=== PATIENT | male | born 1935 | race Caucasian/White ===

== ENCOUNTER 2016-11-14 11:52 | Inpatient (IN) ==
[2016-11-14] MEDS ORDERED: LEVOFLOXACIN INJ 750 MG in PREMIX 1 EACH IV STA (12:29)
[2016-11-14] MEDS ORDERED: ALBUTEROL/IPRATROPIUM 3 ML NEB RESP TX STA (12:29)
[2016-11-14] MEDS ORDERED: PANTOPRAZOLE 40 MG VIAL IV STA (12:29)
[2016-11-14] MEDS ORDERED: methylPREDNISolone SOD SUC 125 MG/2 ML VIAL IV STA (12:29)
[2016-11-14] MEDS ORDERED: METOCLOPRAMIDE 10 MG/2 ML VIAL IV STA (12:29)
--- NOTE | 2016-11-14 12:38 | Emergency Department Note ---
Arrival - Arrival Chief Complaint: Non-Specific Stated Complaint: cold and chills ED Nursing Triage Note: C/o chills and "shaking all over"-onset appx 1 hour ago. +cough, which he states is chronic. Denies CP or SOB. Mode of Arrival: Wheelchair Limitations: No Limitations Source: Patient Time Seen by Provider: 11/14/16 12:29 - History of Present Illness HPI Narrative: This 81-year-old white male presents with abrupt onset of shaking chills and low -grade temperature earlier today. This was not associated with any shortness of breath, chest pain, dysuria, urgency, frequency, nausea, vomiting, or sinus symptoms. However, the patient has had increased complaints of reflux type symptoms as well as midepigastric abdominal discomfort since onset of the chills. More significant, the patient has had problems with a recurrent chronic dry cough for the last week, sometimes associated with expiratory wheeze. Patient is followed by Dr. Paris for COPD and sleep apnea. The patient likewise denies any difficulty developing a stream or hematuria, as he does have a history of prostate cancer surgery per Dr. Eddy. The most significant complaint the patient has at the moment is increased thirst with a very dry mouth that he states he has had for the last 24 hours. Otherwise, the patient is in no acute medical distress. Onset (ago): hour(s) (Patient presents 6 hours post onset of symptoms.) Allergies/Adverse Reactions: Allergies Allergy/AdvReac Type Severity Reaction Status Date / Time simvastatin [From Zocor] Allergy Verified 04/07/16 13:44 Home Medications: Home Medications Medication Instructions Recorded Confirmed Type Cyanocobalamin (Vitamin B-12) 1,000 mcg PO DAILY 06/27/15 11/14/16 History [Vitamin B-12] Tiotropium Inhalation [Spiriva 18 mcg INH DAILY inhalation 07/24/15 11/14/16 Rx Handihaler] capsule Magnesium Oxide 420 mg PO DAILY 11/07/15 11/14/16 History Pantoprazole Tab [Protonix Tab] 40 mg PO BID #60 tablet 03/07/16 11/14/16 Rx Budesonide/Formoterol 80-4.5 2 puff INH BID 04/07/16 11/14/16 History [Symbicort 80-4.5] Colestipol [Colestid] 1 gm PO DAILY 04/07/16 11/14/16 History Furosemide Tab [Lasix Tab] 40 mg PO BID 04/07/16 11/14/16 History hydrALAZINE TAB [Apresoline Tab] 25 mg PO BID 04/07/16 11/14/16 History Albuterol/Ipratropium Neb [Duoneb] 3 ml RESP TX BID 11/14/16 11/14/16 History Apixaban [Eliquis] 2.5 mg PO BID 11/14/16 11/14/16 History Carvedilol [Coreg] 6.25 mg PO BID 11/14/16 11/14/16 History Ferrous Sulfate Tab [Feosol 325 mg PO BID 11/14/16 11/14/16 History Original Tab] Lovastatin 80 mg PO BEDTIME 11/14/16 11/14/16 History Spironolactone 50 mg PO DAILY 11/14/16 11/14/16 History Review of System - Review of System 12 point system: reviewed and no additional remarkable complaints except as stated - Review of System Constitutional: Present: as per HPI Head/Ears/Nose/Throat: Present: see HPI Respiratory: Present: as per HPI Cardiovascular: Present: as per HPI Gastrointestinal: Present: as per HPI Genitourinary male: Present: as per HPI Medical,Surgical,& Family Hx - Medical History Cardio: History of: Cardiac Dysrhythmia (AFIB), CHF (diastolic dysfunction), Hypertension Neurology: No history of: Seizures Endocrine: History of: Dyslipidemia No history of: Diabetes Mellitus (IDDM), Diabetes Mellitus (NIDDM) Respiratory: History of: COPD, Obstructive Sleep Apnea (refractory to CPAP and BiPAP and treated with ASV for tx emergent csa), Respiratory Problems (home o2) Genitourinary: History of: Prostate Problems (surgery), Genitourinary Cancer ( prostate CA with surgery [address] Eddy.), Problems (leaking) Gastrointestinal: History of: GERD, Hemorrhoids Hematology: History of: Anemia Other: History of: Cancer - Surgical History Cardiac Surgeries: Sugical HX of: Cardiac Catheterization HEENT Surgeries: Surgical HX of: Eye Surgery (cataracts) Patient denies: Tonsilectomy & Adenoidectomy Abdominal Surgeries: Surgical HX of: Colonoscopy, EGD Patient denies: Abdominal Surgery, Appendectomy, Cholecystectomy Reproductive Surgeries: Surgical HX of;: Prostate Surgery Orthopedic Surgeries: Patient denies;: Orthopedic Surgery - Family History Family History: Reports;: Family Heart Disease (mother) - Social History Smoking Status: Never smoker Frequency of Alcohol Use: None Type of Drug Use: None Exam Physical Examination: GENERAL: Obese elderly white male in no acute distress. HEENT: Normocephalic. No trauma. Moist mucous membranes. EOMI. PERRLA. ENT NML NECK: Supple. No adenopathy. CARDIAC: Irregular. No murmurs. Heart rate 120 CHEST: Occasional expiratory wheeze and rhonchi. No respiratory distress. O2 sat 93% ABDOMEN: Soft. Tender mid epigastrium. Active bowel sounds. EXTREMITIES: No trauma. Normal ROM. No pedal edema. SKIN: No diaphoresis. No rash. NEURO: Alert. Neuro intact. No focal deficits. Vital Signs: Vital Signs Temperature 100.4 F H 11/14/16 11:58 Pulse Rate 115 H 11/14/16 12:51 Respiratory Rate 20 11/14/16 12:51 Blood Pressure 158/80 11/14/16 11:58 O2 Sat by Pulse Oximetry 98 11/14/16 12:51 Course - Reevaluation(s) Reevaluation #1: Advised patient and family with evidence of decompensation of his failure, resting tachycardia, and temperature, he would need admission for further evaluation and treatment. - Consultations Consultation #1: Discussed with hospitalist service who will admit for further evaluation treatment. Results - Labs CBC & BMP: 11/14/16 12:14 11/14/16 12:14 - Impressions EKG: Atrial fibrillation at 120 with left axis deviation and incomplete right bundle branch block. Nonspecific ST changes with no acute injury pattern noted. - Diagnostic Findings Procedure: Abdominal x-ray: image reviewed by me, report reviewed by me (No acute disease), Chest x-ray: image reviewed by me, report reviewed by me ( Cardiomegaly with pulmonary venous hypertension and incipient CHF) Disposition Clinical Impression: Congestive heart failure, Atrial fibrillation, Fever, History of prostate cancer Case discussed with: patient, patient's family Disposition: Still a Patient Condition: Guarded Time of Disposition: 13:38
[2016-11-14] MEDS ORDERED: LEVOFLOXACIN INJ 150 ML IV ONE (12:42)
[2016-11-14] MEDS ORDERED: PANTOPRAZOLE 40 MG VIAL IV ONE (12:42)
[2016-11-14] MEDS ORDERED: METOCLOPRAMIDE 10 MG/2 ML VIAL ONE (12:43)
[2016-11-14] MEDS ORDERED: methylPREDNISolone SOD SUC 125 MG/2 ML VIAL ONE (12:43)
[2016-11-14 12:44] LABS: Basophils % 0.3 % (0.0-0.8); Eosinophils # 0.1 10*3/uL (0.0-0.87); Eosinophils % 0.6 % (0.00-10.9); Hematocrit 43.4 VOL% (42.0-52.0); Hemoglobin 14.1 GM/DL (14.0-18.0); Immature Granulocytes % 1.2 %; Immature Granulocytes Absolute 0.13 #; Lymphocytes # 0.4 10*3/uL (1.4-4.0); Lymphocytes % 3.5 % (21.2-54.2); Mean Corpuscular HGB Conc 32.5 GM/DL (32-36); Mean Corpuscular Hemoglobin 29 PG (27-34); Mean Corpuscular Volume 88.2 FL (87-102); Mean Platelet Volume 10.2 FL (9.6-12.0); Monocytes # 0.1 10*3/uL (0.11-0.8); Monocytes % 1.1 % (1.7-12.7); Neutrophils % 93.3 % (38.7-73.9); Platelet Count 230 T/CUMM (130-400); Red Blood Count 4.92 MC/CUMM (3.8-5.5); Red Cell Distribution Width 18.9 % (9.3-17.3); White Blood Count 10.7 T/CUMM (4-12)
--- NOTE | 2016-11-14 12:47 | EKG Report ---
Stationary ECG Study [facility] ER Test Date: 11/14/2016 12:45:02 PM Pat Name: TIMOTHY CARRENO Department: Room: 290 Gender: M Property Investor: : [id number] Requested by: Deejay Chavez Order Number: [id number] Reading MD: TARAN BORJAS Intervals [place] Rate: 121 P: 999 [place]: 0 QRS: -32 QRSD: 103 T: 59 QT: 307 QTc: 379 Interpretive Statements ATRIAL FIBRILLATION WITH RAPID VENTRICULAR RESPONSE MARKED LEFT AXIS DEVIATION INCOMPLETE RIGHT BUNDLE BRANCH BLOCK Electronically Signed On 11-16-16 16:38:49 CDT by TARAN BORJAS [email or web address]
[2016-11-14 12:50] LABS: INR 1.1; PT Patient Result 11.4 SECS
[2016-11-14] MEDS ORDERED: METOPROLOL TARTRATE 5 MG/5 ML VIAL IV STA (12:59)
[2016-11-14 13:01] LABS: Alanine Aminotransferase 12 U/L (16-61); Albumin 3.2 G/DL (3.4-5.0); Alkaline Phosphatase 67 U/L (45-117); Amylase 64 U/L (25-115); Aspartate Amino Transferase 19 U/L (0-37); Blood Urea Nitrogen 22 MG/DL (7-18); Calcium 8.9 MG/DL (8.5-10.1); Glucose 176 MG/DL (74-106); Osmolality,Calculated 279.8 MOS/KG (273-304); Potassium 3.9 MMOL/L (3.5-5.1); Sodium 137 MMOL/L (136-145); Total Protein 6.9 G/DL (6.4-8.3); Troponin I Only < 0.015 NG/ML (0.00-0.045)
[2016-11-14 13:05] LABS: Band Neutrophils 18 % (0-10); Hypochromasia Slight; Lymphocytes 1 % (20-55); Platelet Estimate Adequate; Polychromasia Slight; Prostate Specific Antigen Diag < 0.1 NG/ML (0-4); Segmented Neutrophils 77 % (50-85); Total Cells Counted 100
--- NOTE | 2016-11-14 13:26 | XRay Report ---
XR chest 2V Indication: Shortness of breath, fever Comparison: 04 March 2016 Findings: The heart and mediastinum are stable in size and configuration. The pulmonary vascularity is slightly increased with bilateral increased interstitial lung density. No other lung infiltrates, effusions, pneumothorax or other abnormality is demonstrated. Impression: Findings suggest mild cardiac decompensation. PROCEDURE INTERPRETED AT [facility] DEPARTMENT OF RADIOLOGY Final Report Signed by: Dr. Graham Chavarria
--- NOTE | 2016-11-14 13:27 | XRay Report ---
XR abdomen 2V Indication: Abdominal pain Comparison: 27 June 2015 Findings: No free fluid or free air seen. The bowel gas pattern appears within normal limits. No abnormal calcifications are present. Multiple clips are present from previous surgery. No other abnormality is identified. Impression: No evidence of acute process demonstrated. PROCEDURE INTERPRETED AT [facility] DEPARTMENT OF RADIOLOGY Final Report Signed by: Dr. Graham Chavarria
[2016-11-14 13:44] LABS: B-Type Natriuretic Peptide 165 PG/ML (2-100)
[2016-11-14] MEDS ORDERED: METOPROLOL TARTRATE 5 MG/5 ML VIAL IV ONE (14:27)
--- NOTE | 2016-11-14 14:28 | Hospitalist History & Physical ---
Assessment and Plan - Time spent with patient Time spent with patient: Greater than 30 minutes (1) COPD with acute exacerbation Status: Acute Assessment and plan: Admit for further evaluation. Breathing treatments. Repeat CBC, BMP Mg in am. ABGs Current Visit: No (2) Chronic diastolic (congestive) heart failure Status: Acute Assessment and plan: BNP is 165 today. Patient is followed by Dr. Aleman. He will be admitted for observation and treatment. Continue to monitor Current Visit: No (3) Atrial fibrillation, chronic Status: Chronic Assessment and plan: A. fib with RVR. Patient is tachycardic on admission. He was given a beta- luz in the ED. Consider Cardizem drip and consultation from cardiology. Current Visit: No (4) Obstructive sleep apnea Status: Chronic Assessment and plan: Patient uses CPAP. Followed by Dr. Chilel Current Visit: No (5) Physical deconditioning Status: Chronic Current Visit: No History of Present Illness Chief complaint: SOB, CHF exacerbation History of present illness: Mr. Duke is a 81 year old male with a past medical history of COPD, congestive heart failure, hypertension, atrial fibrillation with RVR presents to the ER with chills, fever and shortness of breath. The patient and his who is at bedside states that he began having chills and around 11:00 this morning. He also notes a recurrent cough x 1 week. He denies any associated headache, dizziness, chest pain or pain with inspiration. He does complain of some midepigastric pain that, on exam, is tender to palpation. Patient notes that has sleep apnea and uses and full-face CPAP machine nightly, and he does feel slightly better with O2 per NC. He is known to Dr. Xochitl Aleman and Dr. Reilly Choi. CXR on admission shows cardiac decompensation. Lab work is significant for WBC 10.7, BUN 22, Cr 1.7, Glucose 176, bilirubin 1.10, BNP 165. After discussion with Dr. León and Dr. Flores, it was decided that the patient would be admitted to the hospital medicine service for further evaluation and treatment. He is a full code. Home Medications Medication Instructions Recorded Confirmed Type Cyanocobalamin (Vitamin B-12) 1,000 mcg PO DAILY 06/27/15 11/14/16 History [Vitamin B-12] Tiotropium Inhalation [Spiriva 18 mcg INH DAILY inhalation 07/24/15 11/14/16 Rx Handihaler] capsule Magnesium Oxide 420 mg PO DAILY 11/07/15 11/14/16 History Pantoprazole Tab [Protonix Tab] 40 mg PO BID #60 tablet 03/07/16 11/14/16 Rx Budesonide/Formoterol 80-4.5 2 puff INH BID 04/07/16 11/14/16 History [Symbicort 80-4.5] Colestipol [Colestid] 1 gm PO DAILY 04/07/16 11/14/16 History Furosemide Tab [Lasix Tab] 40 mg PO BID 04/07/16 11/14/16 History hydrALAZINE TAB [Apresoline Tab] 25 mg PO BID 04/07/16 11/14/16 History Albuterol/Ipratropium Neb [Duoneb] 3 ml RESP TX BID 11/14/16 11/14/16 History Apixaban [Eliquis] 2.5 mg PO BID 11/14/16 11/14/16 History Carvedilol [Coreg] 6.25 mg PO BID 11/14/16 11/14/16 History Ferrous Sulfate Tab [Feosol 325 mg PO BID 11/14/16 11/14/16 History Original Tab] Lovastatin 80 mg PO BEDTIME 11/14/16 11/14/16 History Spironolactone 50 mg PO DAILY 11/14/16 11/14/16 History Allergies Allergy/AdvReac Type Severity Reaction Status Date / Time simvastatin [From Zocor] Allergy Verified 04/07/16 13:44 Medical,Surgical,& Family Hx - Medical History Cardio: History of: Cardiac Dysrhythmia (AFIB), CHF (diastolic dysfunction), Hypertension Neurology: No history of: Seizures Endocrine: History of: Dyslipidemia No history of: Diabetes Mellitus (IDDM), Diabetes Mellitus (NIDDM) Respiratory: History of: COPD, Obstructive Sleep Apnea (refractory to CPAP and BiPAP and treated with ASV for tx emergent csa), Respiratory Problems (home o2) Genitourinary: History of: Prostate Problems (surgery), Genitourinary Cancer ( prostate CA with surgery [address] Eddy.), Problems (leaking) Gastrointestinal: History of: GERD, Hemorrhoids Hematology: History of: Anemia Other: History of: Cancer - Surgical History Cardiac Surgeries: Sugical HX of: Cardiac Catheterization HEENT Surgeries: Surgical HX of: Eye Surgery (cataracts) Patient denies: Tonsilectomy & Adenoidectomy Abdominal Surgeries: Surgical HX of: Colonoscopy, EGD Patient denies: Abdominal Surgery, Appendectomy, Cholecystectomy Reproductive Surgeries: Surgical HX of;: Prostate Surgery Orthopedic Surgeries: Patient denies;: Orthopedic Surgery - Family History Family History: Reports;: Family Heart Disease (mother) - Social History Smoking Status: Never smoker Frequency of Alcohol Use: None Type of Drug Use: None Marital Status: Lives With:: Spouse Functional capacity: independent ambulation - Constitutional Constitutional: Present: chills, fever(s), weakness. Absent: headache(s) - EENT Eyes: Absent: blurry vision, loss of vision Nose, mouth and throat: Absent: headache(s), neck pain, sore throat - Cardiovascular Cardiovascular: Present: dyspnea, dyspnea on exertion. Absent: chest pain at rest, edema, palpitations - Respiratory Respiratory: Present: cough, dyspnea, snoring. Absent: hemoptysis, pain on inspiration - Gastrointestinal Gastrointestinal: Present: abdominal pain (epigastric). Absent: constipation, nausea - Genitourinary Genitourinary: Absent: difficulty urinating, dysuria, hematuria - Musculoskeletal Musculoskeletal: Absent: back pain, muscle weakness - Neurological Neurological: Absent: abnormal gait, abnormal speech, dizziness, numbness, syncope - Psychiatric Psychiatric: Absent: anxiety, depression - Endocrine Endocrine: Present: cold intolerance. Absent: fatigue - Hematologic/Lymphatic Hematologic/Lymphatic: Present: easy bleeding, easy bruising Exam - Constitutional Vitals: Period Temp Pulse Resp BP Sys/Fry Pulse Ox Last 24 Hr 100.4 F 105-126 20-26 158/80 93-98 Exam: General appearance: obese, moderately distress - Head Head exam: Present: normocephalic, atraumatic - Eye Eye exam: Present: EOMI. Absent: conjunctival injection, nystagmus Pupils: Present: PHAM, normal accommodation - ENT ENT exam: Present: normal exam, normal external ear exam - Neck Neck exam: Present: normal inspection. Absent: lymphadenopathy, tenderness, thyromegaly - Respiratory Respiratory exam: Present: decreased breath sounds. Absent: wheezes - Cardiovascular Cardiovascular exam: Present: regular rate and rhythm. Absent: carotid bruit, gallop, rubs - GI/Abdominal GI/Abdominal exam: Present: hyperactive bowel sounds. Absent: ascites, mass - Extremities Exam Extremities exam: Present: normal inspection, normal capillary refill. Absent: edema - Back Exam Back exam: Absent: CVA tenderness (L), CVA tenderness (R) - Neurological Exam Neurological exam: Present: alert, oriented X3 - Psychiatric Psychiatric exam: Present: normal affect, normal mood - Skin Skin exam: Present: normal color, warm, dry Results - Labs CBC & BMP: 11/14/16 12:14 11/14/16 12:14 Lab Results: I have reviewed the past 24 hour labs - EKG EKG results: interpreted by ERMD - Diagnostic Findings Procedure: Chest x-ray: image reviewed by me, report reviewed by me ( decompensation)
[2016-11-14] MEDS ORDERED: MAGNESIUM SULF RIDER 2 GM in PREMIX 1 EACH IV PRN (15:12)
[2016-11-14] MEDS ORDERED: POTASSIUM CHLORIDE RIDER 10 MEQ in PREMIX 1 EACH IV PRN (15:12)
[2016-11-14] MEDS ORDERED: MAGNESIUM SULF RIDER 4 GM in PREMIX 1 EACH IV PRN (15:12)
[2016-11-14] MEDS ORDERED: ALBUTEROL/IPRATROPIUM 3 ML NEB RESP TX PRN (15:12)
[2016-11-14] MEDS ORDERED: POTASSIUM CHLORIDE RIDER 20 MEQ in PREMIX 1 EACH IV PRN (15:12)
[2016-11-14] MEDS ORDERED: DILTIAZEM INJ 125 MG in SODIUM CHLORIDE 0.9% 100 ML IV SCH (16:00)
[2016-11-14 16:04] LABS: ABG Base Excess 3.7 MMOL/L (-2.5-2.5); ABG HCO3 26.5 MMOL/L (20-26); ABG Oxygen Saturation 95.7 % (95-100); ABG PCO2 34.3 MM HG (35-48); ABG PH 7.505 (7.35-7.45); ABG PO2 77.5 MM HG (80-95); ABG TCO2 27.5 MMOL/L (23-27)
[2016-11-14] MEDS: LEVOFLOXACIN INJ 750 MG in PREMIX 1 EACH IV SCH (16:37)
[2016-11-14] MEDS: METOPROLOL SUCCINATE XL 25 MG TABLET PO SCH ×2 (16:37→21:50)
[2016-11-14] MEDS: APIXABAN 2.5 MG TABLET PO SCH (21:48)
[2016-11-14] MEDS: LOVASTATIN 20 MG TABLET PO SCH (21:48)
[2016-11-14] MEDS: FUROSEMIDE 40 MG TABLET PO SCH (21:50)
[2016-11-14] MEDS: FERROUS SULFATE 325 MG TABLET PO SCH (21:51)
[2016-11-14] MEDS: PANTOPRAZOLE 40 MG TABLET PO SCH (21:51)
[2016-11-14] MEDS: CARVEDILOL 6.25 MG TABLET PO SCH (21:51)
[2016-11-14] MEDS: hydrALAZINE 25 MG TABLET PO SCH (21:52)
[2016-11-14] MEDS: BUDESONIDE/FORMOTEROL 80-4.5 INHALER 6.9 GM INH SCH (21:54)
[2016-11-15 04:58] LABS: Basophils % 0.1 % (0.0-0.8); Hemoglobin 13.2 GM/DL (14.0-18.0); Immature Granulocytes % 0.7 %; Lymphocytes # 0.5 10*3/uL (1.4-4.0); Lymphocytes % 3.8 % (21.2-54.2); Mean Corpuscular Hemoglobin 29 PG (27-34); Mean Corpuscular Volume 87.5 FL (87-102); Mean Platelet Volume 10.8 FL (9.6-12.0); Monocytes # 0.3 10*3/uL (0.11-0.8); Monocytes % 1.9 % (1.7-12.7); Neutrophils # 13.5 10*3/uL (1.4-7.4); Neutrophils % 93.5 % (38.7-73.9); Platelet Count 210 T/CUMM (130-400); Red Blood Count 4.57 MC/CUMM (3.8-5.5); Red Cell Distribution Width 18.8 % (9.3-17.3); White Blood Count 14.4 T/CUMM (4-12)
[2016-11-15 05:10] LABS: Osmolality,Calculated 284.5 MOS/KG (273-304); Potassium 4.3 MMOL/L (3.5-5.1)
[2016-11-15 07:39] LABS: Band Neutrophils 28 % (0-10); Hypochromasia Slight; Lymphocytes 5 % (20-55); Platelet Estimate Adequate; Segmented Neutrophils 67 % (50-85); Total Cells Counted 100
[2016-11-15] MEDS: APIXABAN 2.5 MG TABLET PO SCH ×2 (08:32→21:19)
[2016-11-15] MEDS: PANTOPRAZOLE 40 MG TABLET PO SCH ×2 (08:32→21:19)
[2016-11-15] MEDS: FERROUS SULFATE 325 MG TABLET PO SCH ×2 (08:32→21:17)
[2016-11-15] MEDS: METOPROLOL SUCCINATE XL 25 MG TABLET PO SCH ×2 (08:32→21:17)
[2016-11-15] MEDS: CYANOCOBALAMIN 500 MCG TABLET PO SCH (08:32)
[2016-11-15] MEDS: COLESTIPOL 1 GM TABLET PO SCH (08:32)
[2016-11-15] MEDS: SPIRONOLACTONE 25 MG TABLET PO SCH (08:32)
[2016-11-15] MEDS: FUROSEMIDE 40 MG TABLET PO SCH ×2 (08:33→21:17)
[2016-11-15] MEDS: CARVEDILOL 6.25 MG TABLET PO SCH (08:33)
[2016-11-15] MEDS: MAGNESIUM OXIDE 400 MG TABLET PO SCH (08:33)
[2016-11-15] MEDS: hydrALAZINE 25 MG TABLET PO SCH ×2 (08:33→21:19)
[2016-11-15] MEDS: BUDESONIDE/FORMOTEROL 80-4.5 INHALER 6.9 GM INH SCH ×2 (08:34→21:20)
--- NOTE | 2016-11-15 09:21 | XRay Report ---
XR chest 2V Indication: Shortness of breath Comparison: 14 Nov 2016 Findings: The heart and mediastinum are stable in size and configuration. The pulmonary vascularity is slightly increased with bilateral increased interstitial lung density. No other lung infiltrates, effusions, pneumothorax or other abnormality is demonstrated. Impression: Findings suggest mild cardiac decompensation similar to previous. PROCEDURE INTERPRETED AT [facility] DEPARTMENT OF RADIOLOGY Final Report Signed by: Dr. Graham Chavarria
--- NOTE | 2016-11-15 10:12 | Cardiology Consult Note ---
Assessment and Plan (1) Atrial fibrillation with RVR Status: Acute Assessment and plan: 1. 81-year-old significantly overweight WM followed by Dr. Aleman with chronic atrial fibrillation who presents with 3 days of cough and increase in his usual dyspnea on exertion with leukocytosis and left shift 2. Heart rate is now controlled; continue his usual Coreg 6.25 mg twice daily and add diltiazem CD 120 mg daily 3. Normal ejection fraction on echocardiogram last year in the hospital. 4. History of reported upper GI bleed last fall, but no problems since on Eliquis 2.5 mg twice daily Current Visit: Yes (2) COPD (chronic obstructive pulmonary disease) Status: Acute Current Visit: No History of Present Illness - Consult Narrative History of present illness: Mr. Duke is a 81 year old male who has had a cough for about 3 days with some increase in his usual dyspnea on exertion. He has had no chest discomfort orthopnea swelling dizziness presyncope or syncope. He may have had a little dysuria? I was consulted as his chronic atrial fibrillation was a bit rapid in the 130 range when he came in. It is now under control. He denies any history of TIA or stroke. He reports having a peptic ulcer around April of last year which required blood transfusion. He has had no bleeding problems since that time. 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 His last echocardiogram showed normal EF. CC: Simeon Flores MD - Home Medications and Allergies Home Medications: Home Medications Medication Instructions Recorded Confirmed Type Cyanocobalamin (Vitamin B-12) 1,000 mcg PO DAILY 06/27/15 11/14/16 History [Vitamin B-12] Tiotropium Inhalation [Spiriva 18 mcg INH DAILY inhalation 07/24/15 11/14/16 Rx Handihaler] capsule Magnesium Oxide 420 mg PO DAILY 11/07/15 11/14/16 History Pantoprazole Tab [Protonix Tab] 40 mg PO BID #60 tablet 03/07/16 11/14/16 Rx Budesonide/Formoterol 80-4.5 2 puff INH BID 04/07/16 11/14/16 History [Symbicort 80-4.5] Colestipol [Colestid] 1 gm PO DAILY 04/07/16 11/14/16 History Furosemide Tab [Lasix Tab] 40 mg PO BID 04/07/16 11/14/16 History hydrALAZINE TAB [Apresoline Tab] 25 mg PO BID 04/07/16 11/14/16 History Albuterol/Ipratropium Neb [Duoneb] 3 ml RESP TX BID 11/14/16 11/14/16 History Apixaban [Eliquis] 2.5 mg PO BID 11/14/16 11/14/16 History Carvedilol [Coreg] 6.25 mg PO BID 11/14/16 11/14/16 History Ferrous Sulfate Tab [Feosol 325 mg PO BID 11/14/16 11/14/16 History Original Tab] Lovastatin 80 mg PO BEDTIME 11/14/16 11/14/16 History Spironolactone 50 mg PO DAILY 11/14/16 11/14/16 History Allergies/Adverse Reactions: Allergies Allergy/AdvReac Type Severity Reaction Status Date / Time simvastatin [From Zocor] Allergy Verified 04/07/16 13:44 Medical,Surgical,& Family Hx - Medical History Cardio: History of: Cardiac Dysrhythmia (AFIB), CHF (diastolic dysfunction), Hypertension Neurology: No history of: Seizures Endocrine: History of: Diabetes Mellitus (IDDM), Dyslipidemia No history of: Diabetes Mellitus (NIDDM) Respiratory: History of: COPD, Obstructive Sleep Apnea (refractory to CPAP and BiPAP and treated with ASV for tx emergent csa), Respiratory Problems (home o2) Genitourinary: History of: Prostate Problems (surgery), Genitourinary Cancer ( prostate CA with surgery [address] Eddy.), Problems (leaking) Gastrointestinal: History of: GERD, Hemorrhoids Hematology: History of: Anemia Other: History of: Cancer - Surgical History Cardiac Surgeries: Sugical HX of: Cardiac Catheterization, Carotid Endarterectomy (right) HEENT Surgeries: Surgical HX of: Carotid Endarterectomy (right), Eye Surgery ( cataracts) Patient denies: Tonsilectomy & Adenoidectomy Abdominal Surgeries: Surgical HX of: Colonoscopy, EGD Patient denies: Abdominal Surgery, Appendectomy, Cholecystectomy Reproductive Surgeries: Surgical HX of;: Prostate Surgery Orthopedic Surgeries: Surgical HX of;: Orthopedic Surgery - Family History Family History: Reports;: Family Heart Disease (mother, father) - Social History Smoking Status: Never smoker Frequency of Alcohol Use: None Type of Drug Use: None Physical Examination Vital Signs Temp Pulse Resp BP Pulse Ox 100.4 F H 126 H 24 158/80 93 L 11/14/16 11:58 11/14/16 11:58 11/14/16 11:58 11/14/16 11:58 11/14/16 11:58 General: Present: Appears Well, No Apparent Distress Neck: Present: Supple Neck, No JVD/HJR Cardiac: Present: Irregularly Regular. Absent: Systolic Murmur, Diastolic Murmur Lungs: Present: No Wheezes, No Rhonchi, Other (Increased expiratory phase) Abdomen: Present: Soft. Absent: Tender Extremities: Present: No Edema Result/EKG - Labs CBC & BMP: 11/15/16 04:12 11/15/16 04:12 Labs: Laboratory Results - last 24 hr 11/14/16 11/15/16 11/15/16 15:56 04:12 04:12 WBC 14.4 H D RBC 4.57 Hgb 13.2 L Hct 40.0 L MCV 87.5 MCH 29 MCHC 33.0 RDW 18.8 H Plt Count 210 MPV 10.8 Neut % (Auto) 93.5 H Lymph % (Auto) 3.8 L [place] % (Auto) 1.9 Eos % (Auto) 0.0 Baso % (Auto) 0.1 Neut # (Auto) 13.5 H Lymph # (Auto) 0.5 L [place] # (Auto) 0.3 Eos # (Auto) 0.0 Baso # (Auto) 0.0 Total Counted 100 Immature Gran % 0.7 Nucleated RBC % 0.0 Immature Gran # 0.10 Segmented Neutrophils 67 Band Neutrophils 28 H Lymphocytes 5 L Nucleated RBCs # 0.00 Platelet Estimate Adequate Hypochromasia Slight ABG pH 7.505 H ABG pCO2 34.3 L ABG pO2 77.5 L ABG HCO3 26.5 H ABG Total CO2 27.5 H ABG O2 Saturation 95.7 ABG Base Excess 3.7 H Sodium 139 Potassium 4.3 Chloride 100 Carbon Dioxide 26 Anion Gap 17.3 H BUN 23 H Creatinine 1.80 H GFR Calculation 45 BUN/Creatinine Ratio 12.00 Glucose 169 H Calculated Osmolality 284.5 Calcium 9.0
--- NOTE | 2016-11-15 11:39 | Hospitalist Progress Note ---
Assessment and Plan (1) Respiratory failure with hypoxia and hypercapnia Status: Acute Assessment and plan: Patient oxygenation is obviously better today. Does not look to be in any distress. Continue current treatment with nasal cannula oxygen. Patient should use a CPAP at nighttime and whenever he goes to sleep. Current Visit: No Qualifiers: Chronicity: acute on chronic Qualified Code(s): J96.21 - Acute and chronic respiratory failure with hypoxia (2) Atrial fibrillation, chronic Status: Chronic Assessment and plan: Ventricular rate is controlled at this time. Continue current medications Current Visit: No (3) Obstructive sleep apnea Status: Chronic Assessment and plan: Patient does have his CPAP in the room. The use that whenever he goes to sleep. Current Visit: No (4) COPD with acute exacerbation Status: Acute Assessment and plan: No respiratory distress at this time patient was doing quite bad yesterday in the emergency room. Continue beta agonist and continue ipratropium bromide and continue steroids. Get patient out of bed to chair ambulating the room. Encourage oral fluids. Current Visit: No Hospitalist: Subjective Interval history: Patient seen interviewed and examined and chart has been reviewed. He is saying that his breathing a lot better no acute distress at this time. The chest x-ray this morning that shows prominent pulmonary arteries and some fibrotic changes in the lungs associated with the chronic COPD. Negative for pneumonia pneumothorax or pleural effusion per report. Patient is to increase activity and observe on the floor as to how he does. Continue telemetry monitoring. Exam - Constitutional Vitals: Period Temp Pulse Resp BP Sys/Fry Pulse Ox Last 24 Hr 97 F-98.4 F 68-120 18-28 109-144/58-82 92-98 General appearance: over weight - Head Head exam: Present: normal inspection, normocephalic, atraumatic - Eye Eye exam: Present: EOMI Pupils: Present: PHAM - ENT ENT exam: Present: normal exam, normal oropharynx - Neck Neck exam: Present: other (Supple neck no thyromegaly midline trachea no stridor ) - Respiratory Respiratory exam: Present: clear to auscultation bilaterally, other (Basilar crackles with end expiratory wheezing) - Cardiovascular Cardiovascular exam: Present: irregular rhythm - GI/Abdominal GI/Abdominal exam: Present: normal bowel sounds, soft, other (Obese abdomen) - Extremities Exam Extremities exam: Present: full ROM - Back Exam Back exam: Present: normal inspection - Neurological Exam Neurological exam: Present: alert, oriented X3, CN II-XII intact - Psychiatric Psychiatric exam: Present: normal affect, normal mood - Skin Skin exam: Present: normal color, warm, dry Results - Labs CBC & BMP: 11/15/16 04:12 11/15/16 04:12 Lab Results: I have reviewed the past 24 hour labs (Noted leukocytosis, patient was still. Also noted creatinine of 1.8)
[2016-11-15] MEDS: LEVOFLOXACIN INJ 750 MG in PREMIX 1 EACH IV SCH (17:09)
[2016-11-15 18:08] LABS: Apearance,Urine CLEAR (Clear); Bilirubin,Urine Negative (Negative); Blood, Urine Negative (Negative); Glucose,Urine (UA) Negative (Negative); Hyaline Casts,Urine 1 /LPF (0-3); Ketones,Urine Negative (Negative); Mucus,Urine Occasional /LPF (Occasional); Nitrite,Urine Negative (Negative); Protein,Urine Negative; RBC,Urine 1 /HPF (0-4); Squamous Epithelial Cell,Urine Occasional /HPF (0-10); Urine Color Yellow (Yellow); Urine Specific Gravity 1.006 (1.001-1.035); Urine Urobilinogen < 2.0 EU/DL (0.2-1.0); WBC,Urine <1 /HPF (0-6)
[2016-11-15] MEDS: LOVASTATIN 20 MG TABLET PO SCH (21:18)
[2016-11-16 05:28] LABS: Calcium 8.7 MG/DL (8.5-10.1); Osmolality,Calculated 290.3 MOS/KG (273-304)
[2016-11-16] MEDS: FUROSEMIDE 40 MG TABLET PO SCH (08:33)
[2016-11-16] MEDS: CYANOCOBALAMIN 500 MCG TABLET PO SCH (08:33)
[2016-11-16] MEDS: COLESTIPOL 1 GM TABLET PO SCH (08:33)
[2016-11-16] MEDS: FERROUS SULFATE 325 MG TABLET PO SCH (08:33)
[2016-11-16] MEDS: APIXABAN 2.5 MG TABLET PO SCH (08:33)
[2016-11-16] MEDS: hydrALAZINE 25 MG TABLET PO SCH (08:33)
[2016-11-16] MEDS: PANTOPRAZOLE 40 MG TABLET PO SCH (08:33)
[2016-11-16] MEDS: MAGNESIUM OXIDE 400 MG TABLET PO SCH (08:34)
[2016-11-16] MEDS: SPIRONOLACTONE 25 MG TABLET PO SCH (08:34)
[2016-11-16] MEDS: METOPROLOL SUCCINATE XL 25 MG TABLET PO SCH (08:34)
[2016-11-16] MEDS: BUDESONIDE/FORMOTEROL 80-4.5 INHALER 6.9 GM INH SCH (09:35)
[2016-11-16 12:06] VITALS: BP 117/68
--- NOTE | 2016-11-16 13:01 | Discharge Summary ---
<Simeon Flores - Last Filed: 11/16/16 12:53> Diagnosis - Discharge Diagnosis (1) Respiratory failure with hypoxia and hypercapnia Status: Acute (2) Atrial fibrillation, chronic Status: Chronic (3) Obstructive sleep apnea Status: Chronic (4) COPD with acute exacerbation Status: Acute Specialty Discharge - Follow Up or Referrals Follow up with: Xochitl Aleman DO [Primary Care Provider] - 12/10/16 1:30 pm Discharge Plan - Discharge Data Disposition: Disch To Home/Self Care Condition at Discharge: Stable Activity: resume usual activities as tolerated Hygiene: may shower Weight Bearing at Discharge: weight bear as tolerated Contact your physician if you experience:: fever over 101, Difficulty voiding, Shortness of breath - Discharge Medications New Metoprolol Succinate Xl [Toprol Xl] 25 mg PO BID #30 tablet Continue Cyanocobalamin (Vitamin B-12) [Vitamin B-12] 1,000 mcg PO DAILY Tiotropium Inhalation [Spiriva Handihaler] 18 mcg INH DAILY inhalation capsule Magnesium Oxide 420 mg PO DAILY Pantoprazole Tab [Protonix Tab] 40 mg PO BID #60 tablet Budesonide/Formoterol 80-4.5 [Symbicort 80-4.5] 2 puff INH BID hydrALAZINE TAB [Apresoline Tab] 25 mg PO BID Furosemide Tab [Lasix Tab] 40 mg PO BID Colestipol [Colestid] 1 gm PO DAILY Albuterol/Ipratropium Neb [Duoneb] 3 ml RESP TX BID Apixaban [Eliquis] 2.5 mg PO BID Lovastatin 80 mg PO BEDTIME Ferrous Sulfate Tab [Feosol Original Tab] 325 mg PO BID Spironolactone 50 mg PO DAILY Discontinued Carvedilol [Coreg] 6.25 mg PO BID - Follow Up or Referral Follow Up: Xochitl Aleman DO [Primary Care Provider] - 12/10/16 1:30 pm - Forms/Instructions Instructions: Atrial Fibrillation (DC), Dyspnea (GEN) Exam - Constitutional Vitals: Period Temp Pulse Resp BP Sys/Fry Pulse Ox Last 24 Hr 96.6 F-97.5 F 63-108 18-20 117-132/68-96 95-100 General appearance: over weight - Head Head exam: Present: normocephalic, atraumatic - Eye Eye exam: Present: EOMI Pupils: Present: PHAM - ENT ENT exam: Present: normal exam - Neck Neck exam: Present: normal inspection - Respiratory Respiratory exam: Present: clear to auscultation bilaterally, other (No wheezing ) - Cardiovascular Cardiovascular exam: Present: regular rate and rhythm - GI/Abdominal GI/Abdominal exam: Present: normal bowel sounds, soft - Extremities Exam Extremities exam: Present: normal inspection, normal capillary refill - Back Exam Back exam: Present: normal inspection - Neurological Exam Neurological exam: Present: alert, oriented X3, CN II-XII intact - Psychiatric Psychiatric exam: Present: normal affect, normal mood - Skin Skin exam: Present: normal color, warm, dry Discharge Results Procedures and tests throughout hospitalization: Pending Orders 11/17/16 04:00 Basic Metabolic Panel IN AM Labs on day of discharge: Labs from last 24 hours 11/16/16 11/15/16 04:21 17:00 Sodium 141 Potassium 4.0 Chloride 101 Carbon Dioxide 28 Anion Gap 16.0 H BUN 34 H Creatinine 1.80 H GFR Calculation 45 BUN/Creatinine Ratio 18.00 Glucose 132 H Calculated Osmolality 290.3 Calcium 8.7 Urine Color Yellow Urine Appearance Clear Urine pH 5.0 Ur Specific [place] 1.006 Urine Protein Negative Urine Glucose (UA) Negative Urine Ketones Negative Urine Blood Negative Urine Nitrate Negative Urine Bilirubin Negative Urine Urobilinogen < 2.0 H Urine Leukocytes Negative Urine RBC 1 Urine WBC <1 Ur Squamous Epith Cells Occasional Hyaline Casts 1 Urine Mucus Occasional Ur Culture Indicated? Not indicated DS: Provider Date of admission: 11/14/16 13:37 Primary care physician: Xochitl Aleman DO Attending physician on admission: Simeon Flores MD Consults: 11/14/16 15:12 Consult to Physician [CONS] Routine Comment: A. fib with RVR known to Dr. Aleman Consulting Provider: Nathaniel Arroyo Person Notified: Dr Conteh Date Notified: 11/14/16 Time Notified: 15:45 Discharging clinician: Simeon Flores MD <Abilio Willson - Last Filed: 11/16/16 13:52> Hospital Course - Hospital Course Hospital Course: This a very pleasant 81 year old male that presented to the ED at [facility] on 11/14 for evaluation of an abrupt onset of shaking chills and low-grade temperature earlier today. The patient has a very impressive medical history significant for carcinoma of the prostate, hypertension, dyslipidemia, diabetes mellitus, chronic obstructive pulmonary disease, obstructive sleep apnea, urinary incontinence, anemia, hemorrhoids, congestive heart failure, oxygen dependence, and atrial fibrillation. He has a surgical history of cataract removal, tonsillectomy, adenoidectomy, and cardiac catheterization. The above complaints were not associated with any shortness of breath, chest pain, dysuria, urgency, frequency, nausea, vomiting, or sinus symptoms. However, the patient reported increased complaints of reflux type symptoms as well as mid epigastric abdominal discomfort since onset of the chills. More significant, the patient has had problems with a recurrent chronic dry cough for the last week, sometimes associated with expiratory wheeze. He is known to Dr. Choi ; who currently manages his COPD and obstructive sleep apnea. At the time of presentation, the patient reported increased thirst with a very dry mouth for 24 hours prior presentation. The patient was subsequently admitted. Labs were obtained which revealed a white blood cell count of 10.7, BUN of 22, Creatinine of 1.7, bilirubin of 1.10 , and BNP of 165. Chest radiograph was obtained which suggested cardiac decompensation. A cardiology consultation was requested. The patient was evaluated and no medication adjustments were made. Intravenous corticosteriods and inhaled bronchodilators were administered and the patient's condition improved. His condition is stable. Today, we feel that he is indeed appropriate for discharge home with follow-up with his PCP and Dr. Choi as directed.
== END 2016-11-16 13:35 | disposition home or self-care (01) | DRG 191 ==
LOC: N.ED 11:52 → N.EDINP 13:37 → N.TELEN 15:20
PROVIDERS: ADMIT Internal Medicine Infectious Disease; ATTEND Internal Medicine Infectious Disease

== ENCOUNTER 2017-02-05 11:12 | Inpatient (IN) ==
--- NOTE | 2017-02-05 13:34 | Hospitalist History & Physical ---
Assessment and Plan (1) Pneumonia Status: Acute Assessment and plan: Pt. started on IV antibiotics. Blood culture pending. Monitor O2 sats. Supplemental O2. Breathing treatments. Current Visit: Yes (2) CHF (congestive heart failure) Status: Acute Assessment and plan: Order BNP. CXR cannot exclude an element of chf. Current Visit: No (3) COPD (chronic obstructive pulmonary disease) Status: Chronic Assessment and plan: Restart home medications. Current Visit: No (4) Hypertension Status: Chronic Assessment and plan: Vital signs stable. Restart home meds and monitor. Current Visit: No (5) Obstructive sleep apnea Status: Chronic Current Visit: No (6) Obesity Status: Chronic Current Visit: No History of Present Illness Chief complaint: Shortness of breath History of present illness: Mr. Duke is a 81 year old white male with a history of GERD, hypertension, hyperlipidemia, hypothyroidism, DIAMOND, chronic renal insufficiency, CHF, COPD, A. fib, anemia, carotid artery disease, and anemia that presented to the local clinic today for evaluation of shortness of breath, cough, and congestion that has been going on for 3 days. Pt. was evaluated at the outside facility and a CXR there revealed pneumonia. Labs also revealed WBC of 12.2. Pt. was referred to the hospital for more comprehensive care. Pt. was seen and examined in med surg bed 517. Pt. states that he has COPD and the last 3 days he has become increasing short of breath; worsening with exertion. Pt. has taken his Symbicort twice daily as well as daily neb treatments without improvement. Pt. also reports a cough that produces yellow/greenish tinged sputum. Pt. denies fever, diaphoresis, night sweats, n/v/d or abdominal pain. CXR film was not available from outside facility so STAT CXR will be obtained to confirm diagnosis. Pt. has been admitted to the hospitalist service and will be further evaluated and treated. Home Medications Medication Instructions Recorded Confirmed Type Cyanocobalamin (Vitamin B-12) 1,000 mcg PO DAILY 06/27/15 11/14/16 History [Vitamin B-12] Tiotropium Inhalation [Spiriva 18 mcg INH DAILY inhalation 07/24/15 11/14/16 Rx Handihaler] capsule Magnesium Oxide 420 mg PO DAILY 11/07/15 11/14/16 History Pantoprazole Tab [Protonix Tab] 40 mg PO BID #60 tablet 03/07/16 11/14/16 Rx Budesonide/Formoterol 80-4.5 2 puff INH BID 04/07/16 11/14/16 History [Symbicort 80-4.5] Colestipol [Colestid] 1 gm PO DAILY 04/07/16 11/14/16 History Furosemide Tab [Lasix Tab] 40 mg PO BID 04/07/16 11/14/16 History hydrALAZINE TAB [Apresoline Tab] 25 mg PO BID 04/07/16 11/14/16 History Albuterol/Ipratropium Neb [Duoneb] 3 ml RESP TX BID 11/14/16 11/14/16 History Apixaban [Eliquis] 2.5 mg PO BID 11/14/16 11/14/16 History Ferrous Sulfate Tab [Feosol 325 mg PO BID 11/14/16 11/14/16 History Original Tab] Lovastatin 80 mg PO BEDTIME 11/14/16 11/14/16 History Spironolactone 50 mg PO DAILY 11/14/16 11/14/16 History Metoprolol Succinate Xl [Toprol Xl] 25 mg PO BID #30 tablet 11/16/16 Rx Allergies Allergy/AdvReac Type Severity Reaction Status Date / Time simvastatin [From Zocor] Allergy Verified 04/07/16 13:44 Medical,Surgical,& Family Hx - Medical History Cardio: History of: Cardiac Dysrhythmia (AFIB), CHF (diastolic dysfunction), Hypertension Psychological: No history of: Anxiety Disorders, ADHD, Behavior Problems, Bipolar Disorder, Depression, Previous Suicide Attempt, Psychiatric/Substance Abuse Tx, Schizophrenia, Violent Behavior, Psychiatric Problems Neurology: No history of: Seizures Endocrine: History of: Diabetes Mellitus (IDDM), Dyslipidemia No history of: Diabetes Mellitus (NIDDM) Respiratory: History of: COPD, Obstructive Sleep Apnea (refractory to CPAP and BiPAP and treated with ASV for tx emergent csa), Respiratory Problems (home o2) Genitourinary: History of: Prostate Problems (surgery), Genitourinary Cancer ( prostate CA with surgery [address] Eddy.), Problems (leaking) Gastrointestinal: History of: GERD, Hemorrhoids Hematology: History of: Anemia Other: History of: Cancer - Surgical History Cardiac Surgeries: Sugical HX of: Cardiac Catheterization, Carotid Endarterectomy (right) HEENT Surgeries: Surgical HX of: Carotid Endarterectomy (right), Eye Surgery ( cataracts) Patient denies: Tonsilectomy & Adenoidectomy Abdominal Surgeries: Surgical HX of: Colonoscopy, EGD Patient denies: Abdominal Surgery, Appendectomy, Cholecystectomy Reproductive Surgeries: Surgical HX of;: Prostate Surgery Orthopedic Surgeries: Surgical HX of;: Orthopedic Surgery - Family History Family History: Reports;: Family Heart Disease (mother, father) - Social History Smoking Status: Former smoker Frequency of Alcohol Use: None Type of Drug Use: None Marital Status: Lives With:: Spouse Functional capacity: uses cane/walker - Constitutional Constitutional: Present: chills, weakness. Absent: fever(s) - EENT Eyes: Absent: blurry vision Ears: Present: decreased hearing Nose, mouth and throat: Absent: epistaxis, headache(s) - Cardiovascular Cardiovascular: Present: dyspnea on exertion. Absent: chest pain at rest - Respiratory Respiratory: Present: cough (productive), dyspnea, dyspnea on exertion - Gastrointestinal Gastrointestinal: Absent: abdominal pain, nausea, vomiting - Genitourinary Genitourinary: Absent: difficulty urinating - Neurological Neurological: Absent: confusion, dizziness Exam - Constitutional Vitals: Period Temp Pulse Resp BP Sys/Fry Pulse Ox Last 24 Hr 98.8 F 78 20 125/78 95 General appearance: no acute distress, over weight - Head Head exam: Present: normal inspection, normocephalic - Eye Eye exam: Present: EOMI. Absent: scleral icterus Pupils: Present: PHAM. Absent: fixed - Respiratory Respiratory exam: Present: rhonchi, other (coarse). Absent: clear to auscultation bilaterally, wheezes - GI/Abdominal GI/Abdominal exam: Present: normal bowel sounds, soft. Absent: tenderness - Extremities Exam Extremities exam: Present: normal capillary refill, full ROM. Absent: edema - Neurological Exam Neurological exam: Present: alert, oriented X3 - Psychiatric Psychiatric exam: Present: normal affect, normal mood - Skin Skin exam: Present: normal color, warm, dry Results - Labs Labs: Labs reviewed from outside facility Glucose 186 BUN 31 Creatinine 1.87 Calcium 8.8 Total bilirubin 1.3 ALP 55 ALT 11 AST 14 TP 7.2 Albumin 2.7 NA 136 K2.9 LAXMI 98 CO2 32.1 WBC 12.2 RBC 4.24 Hgb 12.7 HCT 39.9 PLT 234
[2017-02-05] MEDS ORDERED: ACETAMINOPHEN 325 MG TABLET PO PRN (13:37)
[2017-02-05] MEDS ORDERED: ONDANSETRON 4 MG/2 ML VIAL IV PRN (13:37)
[2017-02-05] MEDS ORDERED: ALBUTEROL 2.5 MG/3 ML NEB RESP TX PRN (13:38)
--- NOTE | 2017-02-05 13:54 | EKG Report ---
Stationary ECG Study [facility] Test Date: 02/05/2017 1:52:38 PM Pat Name: TIMOTHY CARRENO Department: Room: 517 Gender: M Deck Builder: : [id number] Requested by: Nancy [place] Order Number: [id number] Carlene MD: PARAS INIGUEZ Intervals [place] Rate: 85 P: 999 WI: 0 QRS: 81 QRSD: 105 T: 51 QT: 352 QTc: 394 Interpretive Statements ATRIAL FIBRILLATION ABNORMAL RHYTHM ECG NON-SPECIFIC ST-T ABNORMALITIES Electronically Signed On 02-07-17 18:42:39 CDT by PARAS INIGUEZ [email or web address]
--- NOTE | 2017-02-05 14:23 | XRay Report ---
XR chest 1V portable Indication: Shortness of breath. Chest one view: Comparison 11/15/2016. Mild cardiomegaly is stable. Lungs are less well-inflated than previous with progressive atelectasis. Abnormally coarsened interstitial markings of both lungs again noted diffusely. No new infiltrates are identified. Impression: Worsening pulmonary hypoinflation superimposed on severe chronic interstitial lung disease. Stable cardiomegaly. Cannot exclude an element of CHF. PROCEDURE INTERPRETED AT [facility] DEPARTMENT OF RADIOLOGY Final Report Signed by: Nathaniel Hooks M.D.
[2017-02-05] MEDS ORDERED: FUROSEMIDE 40 MG/4 ML VIAL IV ONE (14:45)
[2017-02-05] MEDS: cefTRIAXone 1,000 MG in SODIUM CHLORIDE 0.9% 100 ML IV SCH (15:48)
[2017-02-05] MEDS: AZITHROMYCIN INJ 500 MG in SODIUM CHLORIDE 0.9% 250 ML IV SCH (16:26)
[2017-02-05 17:11] LABS: Apearance,Urine CLEAR (Clear); Bilirubin,Urine Negative (Negative); Blood, Urine Negative (Negative); Glucose,Urine (UA) Negative (Negative); Ketones,Urine Negative (Negative); Mucus,Urine Occasional /LPF (Occasional); Nitrite,Urine Negative (Negative); Protein,Urine Negative; RBC,Urine <1 /HPF (0-4); Squamous Epithelial Cell,Urine Occasional /HPF (0-10); Urine Color Yellow (Yellow); Urine Specific Gravity 1.009 (1.001-1.035); Urine Urobilinogen < 2.0 EU/DL (0.2-1.0); WBC,Urine 1 /HPF (0-6)
[2017-02-05] MEDS: FAMOTIDINE 20 MG TABLET PO SCH (20:46)
[2017-02-05] MEDS: APIXABAN 2.5 MG TABLET PO SCH (20:46)
[2017-02-05] MEDS: FERROUS SULFATE 325 MG TABLET PO SCH (20:46)
[2017-02-05] MEDS: PANTOPRAZOLE 40 MG TABLET PO SCH (20:46)
[2017-02-05] MEDS: hydrALAZINE 25 MG TABLET PO SCH (20:46)
[2017-02-05] MEDS: FUROSEMIDE 40 MG TABLET PO SCH (20:46)
[2017-02-05] MEDS: BUDESONIDE/FORMOTEROL 80-4.5 INHALER 6.9 GM INH SCH (20:46)
[2017-02-05] MEDS ORDERED: ALBUTEROL/IPRATROPIUM 3 ML NEB RESP TX SCH (21:00)
[2017-02-06 05:54] LABS: Basophils % 0.4 % (0.0-0.8); Eosinophils # 0.1 10*3/uL (0.0-0.87); Eosinophils % 0.5 % (0.00-10.9); Hematocrit 36.5 VOL% (42.0-52.0); Hemoglobin 12.1 GM/DL (14.0-18.0); Immature Granulocytes % 0.7 %; Immature Granulocytes Absolute 0.07 #; Lymphocytes # 0.8 10*3/uL (1.4-4.0); Lymphocytes % 7.4 % (21.2-54.2); Mean Corpuscular HGB Conc 33.2 GM/DL (32-36); Mean Corpuscular Hemoglobin 31 PG (27-34); Mean Corpuscular Volume 91.9 FL (87-102); Mean Platelet Volume 10.3 FL (9.6-12.0); Monocytes # 1.1 10*3/uL (0.11-0.8); Monocytes % 10.3 % (1.7-12.7); Neutrophils # 8.6 10*3/uL (1.4-7.4); Neutrophils % 80.7 % (38.7-73.9); Platelet Count 233 T/CUMM (130-400); Red Blood Count 3.97 MC/CUMM (3.8-5.5); Red Cell Distribution Width 15.6 % (9.3-17.3); White Blood Count 10.6 T/CUMM (4-12)
[2017-02-06 06:20] LABS: Hypochromasia Slight; Microcytosis Slight; Platelet Estimate Normal
[2017-02-06 06:34] LABS: Calcium 8.9 MG/DL (8.5-10.1); Free T4 (Free Thyroxine) 2.05 NG/DL (0.76-1.46); Magnesium 2.5 MG/DL (1.8-2.4); Osmolality,Calculated 282.7 MOS/KG (273-304); Potassium 3.6 MMOL/L (3.5-5.1); Risk Ratio 3.15; Thyroid Stimulating Hormone 0.585 uIU/ml (0.358-3.74)
[2017-02-06] MEDS: ALBUTEROL/IPRATROPIUM 3 ML NEB RESP TX SCH ×3 (07:34→19:19)
[2017-02-06] MEDS: hydrALAZINE 25 MG TABLET PO SCH ×2 (08:54→20:06)
[2017-02-06] MEDS: SPIRONOLACTONE 25 MG TABLET PO SCH (08:54)
[2017-02-06] MEDS: MAGNESIUM OXIDE 400 MG TABLET PO SCH (08:54)
[2017-02-06] MEDS: FUROSEMIDE 40 MG TABLET PO SCH ×2 (08:54→20:06)
[2017-02-06] MEDS: APIXABAN 2.5 MG TABLET PO SCH ×2 (08:54→20:06)
[2017-02-06] MEDS: PANTOPRAZOLE 40 MG TABLET PO SCH ×3 (08:54→20:06)
[2017-02-06] MEDS: BUDESONIDE/FORMOTEROL 80-4.5 INHALER 6.9 GM INH SCH ×2 (08:55→20:06)
[2017-02-06] MEDS ORDERED: IPRATROPIUM 500 MCG/2.5 ML NEB RESP TX SCH (09:00)
[2017-02-06] MEDS: COLESTIPOL 1 GM TABLET PO SCH (09:00)
[2017-02-06] MEDS: FERROUS SULFATE 325 MG TABLET PO SCH ×2 (09:00→20:06)
--- NOTE | 2017-02-06 11:03 | Hospitalist Progress Note ---
Assessment and Plan (1) Obstructive sleep apnea Status: Chronic Assessment and plan: Cpap nightly Current Visit: No (2) CHF (congestive heart failure) Status: Acute Assessment and plan: Lasix 40 BID Current Visit: No (3) COPD (chronic obstructive pulmonary disease) Status: Chronic Assessment and plan: Duonebs, abx All low dose prednisone Current Visit: No (4) Pneumonia Status: Acute Assessment and plan: Azithromycin and rocephin Current Visit: Yes Hospitalist: Subjective Interval history: No acute events overnight. Patient feels a little better today. Exam - Constitutional Vitals: Period Temp Pulse Resp BP Sys/Fry Pulse Ox Last 24 Hr 96.9 F-98.8 F 73-92 16-22 109-125/66-80 92-98 General appearance: over weight - Head Head exam: Present: normocephalic, atraumatic - Eye Eye exam: Present: EOMI Pupils: Present: PHAM - ENT ENT exam: Present: normal exam - Neck Neck exam: Present: normal inspection - Respiratory Respiratory exam: Present: decreased breath sounds, wheezes - Cardiovascular Cardiovascular exam: Present: regular rate and rhythm - GI/Abdominal GI/Abdominal exam: Present: normal bowel sounds, soft. Absent: tenderness - Extremities Exam Extremities exam: Present: normal inspection - Back Exam Back exam: Present: normal inspection - Neurological Exam Neurological exam: Present: alert, oriented X3 - Psychiatric Psychiatric exam: Present: normal affect, normal mood - Skin Skin exam: Present: warm, intact Results - Labs CBC & BMP: 02/06/17 05:28 02/06/17 05:28
[2017-02-06] MEDS: predniSONE 20 MG TABLET PO SCH (13:10)
[2017-02-06] MEDS: cefTRIAXone 1,000 MG in SODIUM CHLORIDE 0.9% 100 ML IV SCH (13:11)
[2017-02-06] MEDS: AZITHROMYCIN INJ 500 MG in SODIUM CHLORIDE 0.9% 250 ML IV SCH (16:23)
[2017-02-06] MEDS: FAMOTIDINE 20 MG TABLET PO SCH (20:06)
[2017-02-07 07:03] LABS: Basophils % 0.1 % (0.0-0.8); Hematocrit 39.7 VOL% (42.0-52.0); Hemoglobin 12.9 GM/DL (14.0-18.0); Immature Granulocytes % 1.1 %; Immature Granulocytes Absolute 0.09 #; Lymphocytes # 0.6 10*3/uL (1.4-4.0); Lymphocytes % 7.5 % (21.2-54.2); Mean Corpuscular HGB Conc 32.5 GM/DL (32-36); Mean Corpuscular Hemoglobin 30 PG (27-34); Mean Corpuscular Volume 92.5 FL (87-102); Monocytes # 0.5 10*3/uL (0.11-0.8); Neutrophils # 7.2 10*3/uL (1.4-7.4); Neutrophils % 85.3 % (38.7-73.9); Platelet Count 288 T/CUMM (130-400); Red Blood Count 4.29 MC/CUMM (3.8-5.5); Red Cell Distribution Width 15.3 % (9.3-17.3); White Blood Count 8.5 T/CUMM (4-12)
[2017-02-07] MEDS: ALBUTEROL/IPRATROPIUM 3 ML NEB RESP TX SCH ×3 (07:13→19:35)
[2017-02-07 07:32] LABS: Calcium 8.8 MG/DL (8.5-10.1); Magnesium 2.7 MG/DL (1.8-2.4); Osmolality,Calculated 287.4 MOS/KG (273-304); Potassium 4.1 MMOL/L (3.5-5.1)
[2017-02-07] MEDS: hydrALAZINE 25 MG TABLET PO SCH ×2 (09:10→20:28)
[2017-02-07] MEDS: SPIRONOLACTONE 25 MG TABLET PO SCH (09:10)
[2017-02-07] MEDS: PANTOPRAZOLE 40 MG TABLET PO SCH ×3 (09:10→20:28)
[2017-02-07] MEDS: COLESTIPOL 1 GM TABLET PO SCH (09:10)
[2017-02-07] MEDS: MAGNESIUM OXIDE 400 MG TABLET PO SCH (09:10)
[2017-02-07] MEDS: FUROSEMIDE 40 MG TABLET PO SCH ×2 (09:10→20:28)
[2017-02-07] MEDS: FERROUS SULFATE 325 MG TABLET PO SCH ×2 (09:10→20:28)
[2017-02-07] MEDS: AZITHROMYCIN 250 MG TABLET PO SCH (09:10)
[2017-02-07] MEDS: APIXABAN 2.5 MG TABLET PO SCH ×2 (09:11→20:28)
[2017-02-07] MEDS: BUDESONIDE/FORMOTEROL 80-4.5 INHALER 6.9 GM INH SCH ×2 (09:12→20:29)
[2017-02-07] MEDS: predniSONE 20 MG TABLET PO SCH ×2 (09:18→13:57)
--- NOTE | 2017-02-07 12:35 | Hospitalist Progress Note ---
Assessment and Plan (1) Obstructive sleep apnea Status: Chronic Assessment and plan: Cpap nightly Current Visit: No (2) CHF (congestive heart failure) Status: Acute Assessment and plan: Lasix 40 BID Current Visit: No (3) COPD (chronic obstructive pulmonary disease) Status: Chronic Assessment and plan: Duonebs, abx Low dose prednisone Current Visit: No (4) Pneumonia Status: Acute Assessment and plan: Azithromycin and rocephin Current Visit: Yes Hospitalist: Subjective Interval history: No acute events overnight. He feels a little better today. He reports being unable to eat his food due to not having his bottom set of dentures. His is concerned about facial redness. Exam - Constitutional Vitals: Period Temp Pulse Resp BP Sys/Fry Pulse Ox Last 24 Hr 96.5 F-97.3 F 81-100 18-20 118-140/63-75 92-99 General appearance: over weight - Head Head exam: Present: normocephalic, atraumatic - Eye Eye exam: Present: EOMI Pupils: Present: PHAM - ENT ENT exam: Present: normal exam - Neck Neck exam: Present: normal inspection - Respiratory Respiratory exam: Present: decreased breath sounds. Absent: wheezes - Cardiovascular Cardiovascular exam: Present: regular rate and rhythm - GI/Abdominal GI/Abdominal exam: Present: normal bowel sounds, soft. Absent: tenderness, rebound - Extremities Exam Extremities exam: Present: normal inspection - Back Exam Back exam: Present: normal inspection - Neurological Exam Neurological exam: Present: alert, oriented X3 - Psychiatric Psychiatric exam: Present: normal affect, normal mood - Skin Skin exam: Present: warm, intact Results - Labs CBC & BMP: 02/07/17 06:30 02/07/17 06:30
[2017-02-07] MEDS: cefTRIAXone 1,000 MG in SODIUM CHLORIDE 0.9% 100 ML IV SCH (13:57)
[2017-02-07] MEDS: FAMOTIDINE 20 MG TABLET PO SCH (20:28)
[2017-02-08 05:59] LABS: Calcium 8.8 MG/DL (8.5-10.1); Magnesium 2.6 MG/DL (1.8-2.4); Osmolality,Calculated 285.4 MOS/KG (273-304); Potassium 4.4 MMOL/L (3.5-5.1)
[2017-02-08] MEDS: ALBUTEROL/IPRATROPIUM 3 ML NEB RESP TX SCH ×3 (07:01→20:09)
--- NOTE | 2017-02-08 08:07 | XRay Report ---
Single view the chest. Indication: Congestive heart failure. Comparison: February 05, 2017. The heart is enlarged. The pulmonary vasculature is prominent. The interstitial lung markings are prominent. There are small bilateral pleural effusions. Chronic lung changes are also suspected. Degenerative changes of the spinal column and shoulders. Impression: No significant interval change. PROCEDURE INTERPRETED AT [facility] DEPARTMENT OF RADIOLOGY Final Report Signed by: Dr. Lillian Yin
[2017-02-08] MEDS: COLESTIPOL 1 GM TABLET PO SCH (08:30)
[2017-02-08] MEDS: APIXABAN 2.5 MG TABLET PO SCH ×2 (08:30→20:04)
[2017-02-08] MEDS: SPIRONOLACTONE 25 MG TABLET PO SCH (08:31)
[2017-02-08] MEDS: AZITHROMYCIN 250 MG TABLET PO SCH (08:31)
[2017-02-08] MEDS: FUROSEMIDE 40 MG TABLET PO SCH (08:31)
[2017-02-08] MEDS: FERROUS SULFATE 325 MG TABLET PO SCH ×2 (08:31→20:04)
[2017-02-08] MEDS: predniSONE 20 MG TABLET PO SCH (08:31)
[2017-02-08] MEDS: BUDESONIDE/FORMOTEROL 80-4.5 INHALER 6.9 GM INH SCH ×2 (08:32→20:05)
[2017-02-08] MEDS: PANTOPRAZOLE 40 MG TABLET PO SCH ×2 (08:32→20:04)
[2017-02-08] MEDS: hydrALAZINE 25 MG TABLET PO SCH ×2 (08:32→20:04)
[2017-02-08] MEDS: MAGNESIUM OXIDE 400 MG TABLET PO SCH (08:35)
--- NOTE | 2017-02-08 09:33 | Physician Query Form ---
CLICK EDIT DOCUMENT TO SELECT QUERY ANSWER --> OK --> SIGN Geno Meléndez RN, CCDS Certified Clinical [employer]namental [employer]er W) [phone] (f) [phone] [email or web address] PROVIDERS: Make your selection(s) from the choices in EACH section by typing an "x" and enter comments in the comment section. Please use your independent medical judgment in providing your response. This request does not imply that any particular answer is desired or expected. CLINICAL INDICATORS: (Providers should not edit this section) The medical record indicates that the patient was admitted with pneumonia, CHF [ acute], BNP of 195# on the 4th, BNP of 281# on the 5th, and the patient is on IV / PO Lasix. HISTORY: CHF (diastolic dysfunction) Please provide further specificity regarding CHF. ACUITY: ( ) Acute ( ) Chronic ( x) Acute on Chronic ( ) Clinically unable to determine TYPE: ( ) Systolic (HFrEF - heart failure with reduced systolic function/EF) ( x) Diastolic (HFpEF - heart failure with preserved systolic function/EF) ( ) Combined Systolic/Diastolic ( ) Other, please specify: ( ) Clinically unable to determine ( ) Past Medical History of Systolic CHF ( ) Past Medical History of Diastolic CHF ( ) Clinically unable to determine COMMENTS: PLEASE ALSO DOCUMENT RESPONSE IN PROGRESS NOTES AND/OR DISCHARGE SUMMARY Use of terms such as suspected, likely, or probable (associated with a specific diagnosis that is being evaluated, monitored, or treated as if it exists) are acceptable and can be restated in the discharge summary if not ruled out. MTDD
--- NOTE | 2017-02-08 11:43 | Hospitalist Progress Note ---
Assessment and Plan (1) Obstructive sleep apnea Status: Chronic Assessment and plan: Cpap nightly Current Visit: No (2) CHF (congestive heart failure) Status: Acute Assessment and plan: Lasix 40 BID Will change to IV for today, some mild chf seen on cxr Current Visit: No (3) COPD (chronic obstructive pulmonary disease) Status: Chronic Assessment and plan: Duonebs, abx Low dose prednisone Current Visit: No (4) Pneumonia Status: Acute Assessment and plan: Azithromycin and rocephin Current Visit: Yes Hospitalist: Subjective Interval history: No acute events overnight. Patient feels better. Up and to the bathroom today with only mild sob. Exam - Constitutional Vitals: Period Temp Pulse Resp BP Sys/Fry Pulse Ox Last 24 Hr 96.7 F-97.9 F 75-90 16-20 118-128/65-77 95-100 General appearance: over weight - Head Head exam: Present: normocephalic, atraumatic - Eye Eye exam: Present: EOMI Pupils: Present: PHAM - ENT ENT exam: Present: normal exam - Neck Neck exam: Present: normal inspection - Respiratory Respiratory exam: Present: clear to auscultation bilaterally. Absent: rhonchi, wheezes - Cardiovascular Cardiovascular exam: Present: regular rate and rhythm - GI/Abdominal GI/Abdominal exam: Present: normal bowel sounds, soft. Absent: tenderness, rebound - Extremities Exam Extremities exam: Present: normal inspection - Back Exam Back exam: Present: normal inspection - Neurological Exam Neurological exam: Present: alert, oriented X3 - Psychiatric Psychiatric exam: Present: normal affect, normal mood - Skin Skin exam: Present: warm, intact Results - Labs CBC & BMP: 02/07/17 06:30 02/08/17 04:23
[2017-02-08] MEDS ORDERED: FUROSEMIDE 40 MG/4 ML VIAL ONE (14:57)
[2017-02-08] MEDS: FUROSEMIDE 40 MG/4 ML VIAL IV SCH (15:00)
[2017-02-08] MEDS: cefTRIAXone 1,000 MG in SODIUM CHLORIDE 0.9% 100 ML IV SCH (15:01)
[2017-02-08] MEDS: FAMOTIDINE 20 MG TABLET PO SCH (20:04)
[2017-02-09 07:01] LABS: Calcium 8.7 MG/DL (8.5-10.1); Magnesium 2.5 MG/DL (1.8-2.4); Osmolality,Calculated 289.1 MOS/KG (273-304); Potassium 3.9 MMOL/L (3.5-5.1)
[2017-02-09] MEDS: ALBUTEROL/IPRATROPIUM 3 ML NEB RESP TX SCH (07:35)
[2017-02-09] MEDS: PANTOPRAZOLE 40 MG TABLET PO SCH (08:39)
[2017-02-09] MEDS: AZITHROMYCIN 250 MG TABLET PO SCH (08:39)
[2017-02-09] MEDS: FERROUS SULFATE 325 MG TABLET PO SCH (08:39)
[2017-02-09] MEDS: FUROSEMIDE 40 MG/4 ML VIAL IV SCH (08:40)
[2017-02-09] MEDS: COLESTIPOL 1 GM TABLET PO SCH (08:40)
[2017-02-09] MEDS: hydrALAZINE 25 MG TABLET PO SCH (08:40)
[2017-02-09] MEDS: MAGNESIUM OXIDE 400 MG TABLET PO SCH (08:40)
[2017-02-09] MEDS: SPIRONOLACTONE 25 MG TABLET PO SCH (08:40)
[2017-02-09] MEDS: predniSONE 20 MG TABLET PO SCH (08:40)
[2017-02-09] MEDS: BUDESONIDE/FORMOTEROL 80-4.5 INHALER 6.9 GM INH SCH (08:42)
[2017-02-09] MEDS: APIXABAN 2.5 MG TABLET PO SCH (08:47)
--- NOTE | 2017-02-09 10:27 | Discharge Summary ---
<Marissa Willsonda - Last Filed: 02/09/17 10:19> Hospital Course - Hospital Course Hospital Course: This is a 81-year-old male who presented to the ED at [facility] on the afternoon of February 05, 2017 for the evaluation of shortness of breath. The patient has a very extensive and complex medical history significant for gastroesophageal reflux disease, hypertension, hyperlipidemia, hypothyroidism, obstructive sleep apnea, chronic renal insufficiency, congestive heart failure, chronic obstructive pulmonary disease, atrial fibrillation, anemia, coronary artery disease, and anemia. The patient has a surgical history significant for right carotid endarterectomy, cataract removal , colonoscopy, EGD, prostatectomy. The patient reported the onset of symptoms 3 days prior to presentation. The patient reported a productive cough however; denied fever diaphoresis, night sweats, nausea, vomiting, diarrhea, and chills. The patient presented to a local clinic today for the evaluation of the above symptoms; which he was assessed and determined to have pneumonia. The patient was subsequently admitted to [facility] for further evaluation. Empiric antibiotics, gentle diuresis, inhaled bronchodilators, and intravenous corticosteroids were initiated at the time of admission. A repeat chest x-ray at the time of admission reported worsening pulmonary hypoinflation superimposed on severe chronic interstitial lung disease and stable cardiomegaly. He was started on IV lasix. The patient's home medication were resumed at the time of admission. The patient's condition slowly improved. The patient's condition is now stable. He has not experienced any significant overnight events. Today, we feel that he is indeed appropriate for discharge to follow-up with his primary care physician as directed. Discharge Plan - Discharge Data Disposition: Disch To Home/Self Care - Discharge Medications New Levofloxacin Tab [Levaquin Tab] 500 mg PO DAILY #2 tablet predniSONE TAB [PredniSONE] 10 mg PO DAILY #5 tablet Continue Cyanocobalamin (Vitamin B-12) [Vitamin B-12] 1,000 mcg PO DAILY Tiotropium Inhalation [Spiriva Handihaler] 18 mcg INH DAILY inhalation capsule Magnesium Oxide 420 mg PO DAILY Pantoprazole Tab [Protonix Tab] 40 mg PO BID #60 tablet Budesonide/Formoterol 80-4.5 [Symbicort 80-4.5] 2 puff INH BID hydrALAZINE TAB [Apresoline Tab] 25 mg PO BID Furosemide Tab [Lasix Tab] 40 mg PO BID Colestipol [Colestid] 1 gm PO DAILY Albuterol/Ipratropium Neb [Duoneb] 3 ml RESP TX TID Apixaban [Eliquis] 2.5 mg PO BID Lovastatin 80 mg PO BEDTIME Ferrous Sulfate Tab [Feosol Original Tab] 325 mg PO BID Famotidine 20 mg PO BEDTIME Spironolactone 50 mg PO DAILY Carvedilol [Coreg] 25 mg PO BID - Follow Up or Referral - Forms/Instructions Exam - Constitutional Vitals: Period Temp Pulse Resp BP Sys/Fry Pulse Ox Last 24 Hr 96.6 F-98.7 F 63-103 14-20 111-144/65-89 92-100 Discharge Results Procedures and tests throughout hospitalization: Pending Orders 02/05/17 13:56 Blood Culture Stat Labs on day of discharge: Labs from last 24 hours 02/09/17 02/09/17 04:53 04:53 Sodium 142 Potassium 3.9 Chloride 101 Carbon Dioxide 32 Anion Gap 12.9 BUN 33 H Creatinine 1.40 H GFR Calculation 62 BUN/Creatinine Ratio 23.00 H Glucose 100 Calculated Osmolality 289.1 Calcium 8.7 Magnesium 2.5 H B-Natriuretic Peptide 158 H Preliminary micro results at discharge 02/05/17 13:56 Blood Culture - Preliminary Blood No growth at 3 days 02/05/17 13:56 Blood Culture - Preliminary Blood No growth at 3 days DS: Provider Date of admission: 02/05/17 12:00 Primary care physician: Xochitl Aleman DO Attending physician on admission: Orquidea Hamlin MD Discharging clinician: Abilio Willson CNP <Neo Maldonado - Last Filed: 02/09/17 10:44> Hospital Course - Time spent with patient Time with patient DS: Less than 30 minutes (25) Diagnosis - Discharge Diagnosis (1) Obstructive sleep apnea Status: Chronic (2) CHF (congestive heart failure) Status: Chronic (3) COPD (chronic obstructive pulmonary disease) Status: Chronic (4) Pneumonia Status: Resolved Discharge Plan - Discharge Data Condition at Discharge: Stable Discharge Diet: heart healthy Activity: increase activity as tolerated Hygiene: no restrictions Weight Bearing at Discharge: weight bear as tolerated Driving: no restrictions Contact your physician if you experience:: fever over 101, Shortness of breath Exam - Constitutional General appearance: over weight - Head Head exam: Present: normocephalic, atraumatic - Eye Eye exam: Present: EOMI Pupils: Present: PHAM - ENT ENT exam: Present: normal exam - Neck Neck exam: Present: normal inspection - Respiratory Respiratory exam: Present: clear to auscultation bilaterally. Absent: rhonchi, wheezes - Cardiovascular Cardiovascular exam: Present: regular rate and rhythm - GI/Abdominal GI/Abdominal exam: Present: normal bowel sounds, soft. Absent: tenderness, rebound - Extremities Exam Extremities exam: Present: normal inspection - Back Exam Back exam: Present: normal inspection - Neurological Exam Neurological exam: Present: alert, oriented X3 - Psychiatric Psychiatric exam: Present: normal affect, normal mood - Skin Skin exam: Present: warm, intact
[2017-02-09 12:24] VITALS: BP 119/62
== END 2017-02-09 12:10 | disposition home or self-care (01) | DRG 190 ==
LOC: N.5E 12:00 → SUATTDRO 12:00
PROVIDERS: ADMIT Hospitalist; ATTEND Internal Medicine

== ENCOUNTER 2017-05-27 13:54 | Inpatient (IN) ==
[2017-05-27] MEDS ORDERED: ONDANSETRON 4 MG/2 ML VIAL IV STA (14:14)
[2017-05-27] MEDS ORDERED: SODIUM CHLORIDE 0.9% 1,000 ML IV STA (14:14)
[2017-05-27] MEDS ORDERED: HYDROmorphone 2 MG/1 ML VIAL IV STA (14:14)
[2017-05-27] MEDS ORDERED: ONDANSETRON 4 MG/2 ML VIAL ONE (14:35)
[2017-05-27] MEDS ORDERED: HYDROmorphone 2 MG/1 ML VIAL ONE (14:35)
[2017-05-27 14:49] LABS: Basophils % 0.2 % (0.0-0.8); Eosinophils % 0.4 % (0.00-10.9); Hematocrit 41.3 VOL% (42.0-52.0); Hemoglobin 13.5 GM/DL (14.0-18.0); Immature Granulocytes % 0.9 %; Immature Granulocytes Absolute 0.09 #; Lymphocytes # 0.8 10*3/uL (1.4-4.0); Lymphocytes % 7.8 % (21.2-54.2); Mean Corpuscular HGB Conc 32.7 GM/DL (32-36); Mean Corpuscular Hemoglobin 31 PG (27-34); Mean Corpuscular Volume 93.7 FL (87-102); Mean Platelet Volume 10.5 FL (9.6-12.0); Monocytes % 10.2 % (1.7-12.7); Neutrophils # 8.2 10*3/uL (1.4-7.4); Neutrophils % 80.5 % (38.7-73.9); Platelet Count 258 T/CUMM (130-400); Red Blood Count 4.41 MC/CUMM (3.8-5.5); Red Cell Distribution Width 15.3 % (9.3-17.3); White Blood Count 10.2 T/CUMM (4-12)
[2017-05-27 15:20] LABS: Albumin 2.5 G/DL (3.4-5.0); Bilirubin,Total 3.4 MG/DL (0.2-1.0); Calcium 8.9 MG/DL (8.5-10.1); Osmolality,Calculated 277.1 MOS/KG (273-304); Potassium 4.7 MMOL/L (3.5-5.1); Total Protein 7.6 G/DL (6.4-8.3)
[2017-05-27 15:40] LABS: Apearance,Urine CLEAR (Clear); Bilirubin,Urine Negative (Negative); Blood, Urine Negative (Negative); Glucose,Urine (UA) Negative (Negative); Hyaline Casts,Urine 5 /LPF (0-3); Ketones,Urine Negative (Negative); Mucus,Urine Occasional /LPF (Occasional); Nitrite,Urine Negative (Negative); Protein,Urine Negative; RBC,Urine <1 /HPF (0-4); Squamous Epithelial Cell,Urine Occasional /HPF (0-10); Urine Color Amber (Yellow); Urine Specific Gravity 1.009 (1.001-1.035); WBC,Urine 1 /HPF (0-6)
[2017-05-27] MEDS ORDERED: PIPERACILLIN/TAZOBACTAM 3,375 MG in SODIUM CHLORIDE 0.9% 100 ML IV STA (15:41)
[2017-05-27] MEDS ORDERED: PIPERACILLIN/TAZOBACTAM 3,375 MG VIAL IV ONE (15:55)
[2017-05-27] MEDS ORDERED: SODIUM CHLORIDE 0.9% 100 ML IV ONE (15:56)
[2017-05-27] MEDS ORDERED: ONDANSETRON 4 MG/2 ML VIAL IV PRN ×2 (17:12→19:00)
[2017-05-27] MEDS: SODIUM CHLORIDE 0.9% 1,000 ML IV SCH (17:33)
[2017-05-27] MEDS ORDERED: ACETAMINOPHEN 325 MG TABLET PO PRN (19:00)
[2017-05-27] MEDS ORDERED: GLUCAGON 1 MG VIAL IM PRN (19:00)
[2017-05-27] MEDS ORDERED: DEXTROSE 50% 25 GM/50 ML VIAL IV PRN (19:00)
[2017-05-27] MEDS: ALBUTEROL/IPRATROPIUM 3 ML NEB RESP TX SCH (20:06)
[2017-05-27] MEDS: INSULIN REGULAR 100 UNIT/ML SUBCUT SCH (21:22)
[2017-05-27] MEDS: FERROUS SULFATE 325 MG TABLET PO SCH (21:23)
[2017-05-27] MEDS: CARVEDILOL 25 MG TABLET PO SCH (21:23)
[2017-05-27] MEDS: BUDESONIDE/FORMOTEROL 80-4.5 INHALER 6.9 GM INH SCH (21:23)
[2017-05-28] MEDS: PIPERACILLIN/TAZOBACTAM 3,375 MG in SODIUM CHLORIDE 0.9% 100 ML IV SCH ×3 (00:18→20:58)
[2017-05-28 00:35] LABS: INR 1.1; PT Patient Result 11.9 SECS
[2017-05-28] MEDS: INSULIN REGULAR 100 UNIT/ML SUBCUT SCH ×4 (04:07→19:43)
[2017-05-28 05:39] LABS: Basophils % 0.6 % (0.0-0.8); Eosinophils # 0.1 10*3/uL (0.0-0.87); Eosinophils % 0.9 % (0.00-10.9); Hemoglobin 11.9 GM/DL (14.0-18.0); Immature Granulocytes % 0.9 %; Immature Granulocytes Absolute 0.06 #; Lymphocytes # 0.5 10*3/uL (1.4-4.0); Lymphocytes % 7.3 % (21.2-54.2); Mean Corpuscular HGB Conc 33.1 GM/DL (32-36); Mean Corpuscular Hemoglobin 31 PG (27-34); Mean Corpuscular Volume 93.5 FL (87-102); Mean Platelet Volume 10.6 FL (9.6-12.0); Monocytes # 0.8 10*3/uL (0.11-0.8); Monocytes % 10.7 % (1.7-12.7); Neutrophils # 5.6 10*3/uL (1.4-7.4); Neutrophils % 79.6 % (38.7-73.9); Platelet Count 226 T/CUMM (130-400); Red Blood Count 3.85 MC/CUMM (3.8-5.5); Red Cell Distribution Width 15.2 % (9.3-17.3)
[2017-05-28 05:57] LABS: INR 1.1; PT Patient Result 11.8 SECS
[2017-05-28 06:13] LABS: Albumin 2.1 G/DL (3.4-5.0); Calcium 7.7 MG/DL (8.5-10.1); Calcium 7.9 MG/DL (8.5-10.1); Magnesium 2.2 MG/DL (1.8-2.4); Osmolality,Calculated 281.5 MOS/KG (273-304); Potassium 3.9 MMOL/L (3.5-5.1); Total Protein 5.4 G/DL (6.4-8.3)
[2017-05-28 06:26] LABS: Albumin 2.1 G/DL (3.4-5.0); Bilirubin,Direct 3.26 MG/DL (0.0-0.20); Bilirubin,Indirect 0.5 MG/DL (0.0-1.0); Bilirubin,Total 3.8 MG/DL (0.2-1.0); Total Protein 5.4 G/DL (6.4-8.3)
[2017-05-28] MEDS: ALBUTEROL/IPRATROPIUM 3 ML NEB RESP TX SCH ×3 (07:17→19:18)
[2017-05-28] MEDS: SODIUM CHLORIDE 0.9% 1,000 ML IV SCH ×3 (07:40→23:39)
[2017-05-28] MEDS ORDERED: NON-FORMULARY MEDICATION (Tiotropium Inhalation 18 MCG) INH SCH (09:00)
[2017-05-28] MEDS ORDERED: DIAZEPAM 5 MG TABLET PO ONE (09:20)
[2017-05-28] MEDS ORDERED: MIDAZOLAM 2 MG/2 ML VIAL IV ONE (09:20)
[2017-05-28] MEDS ORDERED: fentaNYL 100 MCG/2 ML VIAL IV ONE (09:20)
[2017-05-28] MEDS: PANTOPRAZOLE 40 MG VIAL IV SCH (09:55)
[2017-05-28] MEDS ORDERED: MIDAZOLAM 2 MG/2 ML VIAL ONE (10:33)
[2017-05-28] MEDS ORDERED: fentaNYL 100 MCG/2 ML VIAL ONE (10:33)
[2017-05-28] MEDS: CYANOCOBALAMIN 500 MCG TABLET PO SCH (12:23)
[2017-05-28] MEDS: CARVEDILOL 25 MG TABLET PO SCH ×2 (12:23→18:12)
[2017-05-28] MEDS: FERROUS SULFATE 325 MG TABLET PO SCH ×2 (12:24→20:58)
[2017-05-28] MEDS: BUDESONIDE/FORMOTEROL 80-4.5 INHALER 6.9 GM INH SCH ×2 (12:24→20:59)
[2017-05-28] MEDS: MORPHINE 2 MG/1 ML SYRINGE IV PRN (19:42)
[2017-05-29] MEDS: INSULIN REGULAR 100 UNIT/ML SUBCUT SCH ×4 (01:41→20:52)
[2017-05-29] MEDS: MORPHINE 2 MG/1 ML SYRINGE IV PRN (02:20)
[2017-05-29] MEDS: PIPERACILLIN/TAZOBACTAM 3,375 MG in SODIUM CHLORIDE 0.9% 100 ML IV SCH ×3 (04:52→20:53)
[2017-05-29 04:55] LABS: Basophils % 0.7 % (0.0-0.8); Eosinophils # 0.1 10*3/uL (0.0-0.87); Eosinophils % 2.8 % (0.00-10.9); Hematocrit 35.3 VOL% (42.0-52.0); Hemoglobin 11.6 GM/DL (14.0-18.0); Immature Granulocytes % 1.2 %; Immature Granulocytes Absolute 0.05 #; Lymphocytes # 0.6 10*3/uL (1.4-4.0); Lymphocytes % 13.7 % (21.2-54.2); Mean Corpuscular HGB Conc 32.9 GM/DL (32-36); Mean Corpuscular Hemoglobin 31 PG (27-34); Mean Corpuscular Volume 93.6 FL (87-102); Mean Platelet Volume 10.6 FL (9.6-12.0); Monocytes # 0.6 10*3/uL (0.11-0.8); Neutrophils % 68.6 % (38.7-73.9); Platelet Count 219 T/CUMM (130-400); Red Blood Count 3.77 MC/CUMM (3.8-5.5); Red Cell Distribution Width 15.3 % (9.3-17.3); White Blood Count 4.3 T/CUMM (4-12)
[2017-05-29] MEDS: ALBUTEROL/IPRATROPIUM 3 ML NEB RESP TX SCH ×3 (08:44→19:31)
[2017-05-29] MEDS: PANTOPRAZOLE 40 MG VIAL IV SCH (12:27)
[2017-05-29] MEDS: BUDESONIDE/FORMOTEROL 80-4.5 INHALER 6.9 GM INH SCH ×2 (12:32→20:54)
[2017-05-29] MEDS: CARVEDILOL 25 MG TABLET PO SCH ×2 (12:35→17:53)
[2017-05-29] MEDS: FERROUS SULFATE 325 MG TABLET PO SCH ×2 (12:35→20:54)
[2017-05-29] MEDS: CYANOCOBALAMIN 500 MCG TABLET PO SCH (12:35)
[2017-05-29] MEDS: SODIUM CHLORIDE 0.9% 1,000 ML IV SCH ×2 (17:57→20:52)
[2017-05-30] MEDS: INSULIN REGULAR 100 UNIT/ML SUBCUT SCH ×4 (03:52→21:33)
[2017-05-30] MEDS: PIPERACILLIN/TAZOBACTAM 3,375 MG in SODIUM CHLORIDE 0.9% 100 ML IV SCH ×3 (03:53→21:40)
[2017-05-30 04:34] LABS: Bilirubin,Direct 0.64 MG/DL (0.0-0.20); Bilirubin,Indirect 0.7 MG/DL (0.0-1.0); Bilirubin,Total 1.3 MG/DL (0.2-1.0); Total Protein 5.2 G/DL (6.4-8.3)
[2017-05-30] MEDS: ALBUTEROL/IPRATROPIUM 3 ML NEB RESP TX SCH ×3 (07:55→19:32)
[2017-05-30] MEDS ORDERED: BISACODYL 10 MG SUPP RECTAL PRN (09:29)
[2017-05-30] MEDS: CYANOCOBALAMIN 500 MCG TABLET PO SCH (10:16)
[2017-05-30] MEDS: CARVEDILOL 25 MG TABLET PO SCH ×2 (10:16→17:54)
[2017-05-30] MEDS: FERROUS SULFATE 325 MG TABLET PO SCH ×2 (10:16→21:41)
[2017-05-30] MEDS: PANTOPRAZOLE 40 MG VIAL IV SCH (10:17)
[2017-05-30] MEDS: BUDESONIDE/FORMOTEROL 80-4.5 INHALER 6.9 GM INH SCH ×2 (10:17→21:44)
[2017-05-30] MEDS: SODIUM CHLORIDE 0.9% 1,000 ML IV SCH ×2 (12:21→21:34)
[2017-05-30] MEDS: DOCUSATE SODIUM 100 MG CAPSULE PO SCH (21:41)
[2017-05-31] MEDS: INSULIN REGULAR 100 UNIT/ML SUBCUT SCH ×4 (02:43→18:26)
[2017-05-31] MEDS: PIPERACILLIN/TAZOBACTAM 3,375 MG in SODIUM CHLORIDE 0.9% 100 ML IV SCH ×3 (06:13→21:48)
[2017-05-31] MEDS: SODIUM CHLORIDE 0.9% 1,000 ML IV SCH (06:13)
[2017-05-31] MEDS: ALBUTEROL/IPRATROPIUM 3 ML NEB RESP TX SCH ×3 (07:37→21:10)
[2017-05-31] MEDS: CARVEDILOL 25 MG TABLET PO SCH ×2 (09:03→16:50)
[2017-05-31] MEDS: FERROUS SULFATE 325 MG TABLET PO SCH ×2 (09:03→21:42)
[2017-05-31] MEDS: DOCUSATE SODIUM 100 MG CAPSULE PO SCH ×2 (09:03→21:42)
[2017-05-31] MEDS: CYANOCOBALAMIN 500 MCG TABLET PO SCH (09:04)
[2017-05-31] MEDS: PANTOPRAZOLE 40 MG VIAL IV SCH (09:04)
[2017-05-31] MEDS: BUDESONIDE/FORMOTEROL 80-4.5 INHALER 6.9 GM INH SCH ×2 (09:04→21:50)
[2017-05-31 09:46] LABS: Basophils % 0.6 % (0.0-0.8); Eosinophils # 0.2 10*3/uL (0.0-0.87); Eosinophils % 4.3 % (0.00-10.9); Hematocrit 35.4 VOL% (42.0-52.0); Hemoglobin 11.5 GM/DL (14.0-18.0); Immature Granulocytes % 1.9 %; Lymphocytes # 0.7 10*3/uL (1.4-4.0); Lymphocytes % 13.2 % (21.2-54.2); Mean Corpuscular HGB Conc 32.5 GM/DL (32-36); Mean Corpuscular Hemoglobin 31 PG (27-34); Mean Corpuscular Volume 95.4 FL (87-102); Mean Platelet Volume 9.9 FL (9.6-12.0); Monocytes # 0.5 10*3/uL (0.11-0.8); Monocytes % 10.3 % (1.7-12.7); Neutrophils # 3.6 10*3/uL (1.4-7.4); Neutrophils % 69.7 % (38.7-73.9); Platelet Count 222 T/CUMM (130-400); Red Blood Count 3.71 MC/CUMM (3.8-5.5); Red Cell Distribution Width 15.7 % (9.3-17.3); White Blood Count 5.2 T/CUMM (4-12)
[2017-05-31 11:06] LABS: Bilirubin,Total 0.8 MG/DL (0.2-1.0); Calcium 8.2 MG/DL (8.5-10.1); Osmolality,Calculated 282.3 MOS/KG (273-304); Potassium 4.1 MMOL/L (3.5-5.1); Total Protein 5.3 G/DL (6.4-8.3)
[2017-05-31] MEDS: methylPREDNISolone SOD SUC 40 MG/1 ML VIAL IV SCH (15:08)
[2017-05-31] MEDS: APIXABAN 2.5 MG TABLET PO SCH (21:43)
[2017-05-31] MEDS: FUROSEMIDE 20 MG/2 ML VIAL IV SCH (21:43)
[2017-06-01] MEDS: methylPREDNISolone SOD SUC 40 MG/1 ML VIAL IV SCH ×4 (00:56→22:18)
[2017-06-01] MEDS: INSULIN REGULAR 100 UNIT/ML SUBCUT SCH ×4 (01:01→18:33)
[2017-06-01] MEDS: PIPERACILLIN/TAZOBACTAM 3,375 MG in SODIUM CHLORIDE 0.9% 100 ML IV SCH ×3 (05:05→22:10)
[2017-06-01 05:35] LABS: Basophils % 0.4 % (0.0-0.8); Eosinophils % 0.2 % (0.00-10.9); Hemoglobin 12.4 GM/DL (14.0-18.0); Immature Granulocytes % 2.2 %; Lymphocytes # 0.5 10*3/uL (1.4-4.0); Lymphocytes % 11.4 % (21.2-54.2); Mean Corpuscular HGB Conc 32.6 GM/DL (32-36); Mean Corpuscular Hemoglobin 30 PG (27-34); Mean Corpuscular Volume 93.1 FL (87-102); Mean Platelet Volume 10.4 FL (9.6-12.0); Monocytes # 0.1 10*3/uL (0.11-0.8); Monocytes % 2.4 % (1.7-12.7); Neutrophils # 3.8 10*3/uL (1.4-7.4); Neutrophils % 83.4 % (38.7-73.9); Platelet Count 254 T/CUMM (130-400); Red Blood Count 4.08 MC/CUMM (3.8-5.5); Red Cell Distribution Width 15.8 % (9.3-17.3); White Blood Count 4.6 T/CUMM (4-12)
[2017-06-01 06:09] LABS: Albumin 2.3 G/DL (3.4-5.0); Bilirubin,Total 1.1 MG/DL (0.2-1.0); Calcium 8.7 MG/DL (8.5-10.1); Osmolality,Calculated 280.4 MOS/KG (273-304); Potassium 4.4 MMOL/L (3.5-5.1)
[2017-06-01 06:36] LABS: Albumin 2.3 G/DL (3.4-5.0); Bilirubin,Direct 0.41 MG/DL (0.0-0.20); Bilirubin,Indirect 0.3 MG/DL (0.0-1.0); Bilirubin,Total 0.7 MG/DL (0.2-1.0); Total Protein 6.1 G/DL (6.4-8.3)
[2017-06-01] MEDS: ALBUTEROL/IPRATROPIUM 3 ML NEB RESP TX SCH ×3 (07:56→20:06)
[2017-06-01] MEDS: CARVEDILOL 25 MG TABLET PO SCH ×2 (09:31→16:52)
[2017-06-01] MEDS: FUROSEMIDE 20 MG/2 ML VIAL IV SCH ×2 (09:32→16:52)
[2017-06-01] MEDS: PANTOPRAZOLE 40 MG VIAL IV SCH (09:35)
[2017-06-01] MEDS: FERROUS SULFATE 325 MG TABLET PO SCH ×2 (09:35→22:09)
[2017-06-01] MEDS: DOCUSATE SODIUM 100 MG CAPSULE PO SCH ×2 (09:35→22:09)
[2017-06-01] MEDS: CYANOCOBALAMIN 500 MCG TABLET PO SCH (09:39)
[2017-06-01] MEDS: APIXABAN 2.5 MG TABLET PO SCH (09:52)
[2017-06-01] MEDS: BUDESONIDE/FORMOTEROL 80-4.5 INHALER 6.9 GM INH SCH ×2 (10:23→22:10)
[2017-06-01] MEDS: SODIUM CHLORIDE 0.9% 1,000 ML IV SCH ×2 (19:53→19:54)
[2017-06-02] MEDS: INSULIN REGULAR 100 UNIT/ML SUBCUT SCH ×4 (00:35→18:47)
[2017-06-02] MEDS: PIPERACILLIN/TAZOBACTAM 3,375 MG in SODIUM CHLORIDE 0.9% 100 ML IV SCH ×3 (04:50→21:52)
[2017-06-02 05:59] LABS: Basophils % 0.1 % (0.0-0.8); Hemoglobin 12.5 GM/DL (14.0-18.0); Immature Granulocytes % 2.1 %; Lymphocytes # 0.7 10*3/uL (1.4-4.0); Lymphocytes % 6.9 % (21.2-54.2); Mean Corpuscular HGB Conc 32.9 GM/DL (32-36); Mean Corpuscular Hemoglobin 31 PG (27-34); Mean Corpuscular Volume 92.9 FL (87-102); Mean Platelet Volume 10.3 FL (9.6-12.0); Monocytes # 0.3 10*3/uL (0.11-0.8); Monocytes % 3.5 % (1.7-12.7); Neutrophils # 8.4 10*3/uL (1.4-7.4); Neutrophils % 87.4 % (38.7-73.9); Platelet Count 296 T/CUMM (130-400); Red Blood Count 4.09 MC/CUMM (3.8-5.5); Red Cell Distribution Width 15.9 % (9.3-17.3); White Blood Count 9.6 T/CUMM (4-12)
[2017-06-02] MEDS: methylPREDNISolone SOD SUC 40 MG/1 ML VIAL IV SCH ×3 (06:07→21:51)
[2017-06-02 06:40] LABS: Albumin 2.3 G/DL (3.4-5.0); Bilirubin,Total 0.6 MG/DL (0.2-1.0); Calcium 8.9 MG/DL (8.5-10.1); Osmolality,Calculated 282.4 MOS/KG (273-304); Potassium 4.3 MMOL/L (3.5-5.1)
[2017-06-02] MEDS: ALBUTEROL/IPRATROPIUM 3 ML NEB RESP TX SCH ×3 (07:19→20:32)
[2017-06-02] MEDS: BUDESONIDE/FORMOTEROL 80-4.5 INHALER 6.9 GM INH SCH ×2 (09:48→21:52)
[2017-06-02] MEDS: CARVEDILOL 25 MG TABLET PO SCH ×2 (09:48→16:38)
[2017-06-02] MEDS: FERROUS SULFATE 325 MG TABLET PO SCH ×2 (09:48→21:51)
[2017-06-02] MEDS: CYANOCOBALAMIN 500 MCG TABLET PO SCH (09:48)
[2017-06-02] MEDS: DOCUSATE SODIUM 100 MG CAPSULE PO SCH ×2 (09:48→21:51)
[2017-06-02] MEDS: FUROSEMIDE 20 MG/2 ML VIAL IV SCH ×2 (11:03→16:38)
[2017-06-02] MEDS: PANTOPRAZOLE 40 MG VIAL IV SCH (11:03)
[2017-06-02] MEDS: SODIUM CHLORIDE 0.9% 1,000 ML IV SCH (18:47)
[2017-06-02] MEDS: ZALEPLON 5 MG CAPSULE PO PRN (21:52)
[2017-06-03] MEDS: INSULIN REGULAR 100 UNIT/ML SUBCUT SCH ×4 (00:48→20:57)
[2017-06-03] MEDS: methylPREDNISolone SOD SUC 40 MG/1 ML VIAL IV SCH ×3 (04:39→20:58)
[2017-06-03] MEDS: PIPERACILLIN/TAZOBACTAM 3,375 MG in SODIUM CHLORIDE 0.9% 100 ML IV SCH ×3 (04:39→21:03)
[2017-06-03] MEDS: ALBUTEROL/IPRATROPIUM 3 ML NEB RESP TX SCH ×3 (07:50→20:01)
[2017-06-03] MEDS: DOCUSATE SODIUM 100 MG CAPSULE PO SCH ×2 (09:00→21:00)
[2017-06-03] MEDS: FUROSEMIDE 20 MG/2 ML VIAL IV SCH ×2 (09:00→15:29)
[2017-06-03] MEDS: CYANOCOBALAMIN 500 MCG TABLET PO SCH (09:00)
[2017-06-03] MEDS: CARVEDILOL 25 MG TABLET PO SCH ×2 (09:00→18:29)
[2017-06-03] MEDS: FERROUS SULFATE 325 MG TABLET PO SCH ×2 (09:00→21:00)
[2017-06-03] MEDS: BUDESONIDE/FORMOTEROL 80-4.5 INHALER 6.9 GM INH SCH ×2 (09:01→21:08)
[2017-06-03] MEDS: PANTOPRAZOLE 40 MG VIAL IV SCH (09:01)
[2017-06-03] MEDS: SODIUM CHLORIDE 0.9% 1,000 ML IV SCH (19:26)
[2017-06-03] MEDS: ZALEPLON 5 MG CAPSULE PO PRN (21:00)
[2017-06-04] MEDS: INSULIN REGULAR 100 UNIT/ML SUBCUT SCH ×4 (00:43→18:39)
[2017-06-04 04:33] LABS: Basophils % 0.3 % (0.0-0.8); Hematocrit 38.9 VOL% (42.0-52.0); Hemoglobin 12.5 GM/DL (14.0-18.0); Immature Granulocytes % 7.5 %; Immature Granulocytes Absolute 0.52 #; Lymphocytes # 0.5 10*3/uL (1.4-4.0); Lymphocytes % 7.8 % (21.2-54.2); Mean Corpuscular HGB Conc 32.1 GM/DL (32-36); Mean Corpuscular Hemoglobin 30 PG (27-34); Mean Platelet Volume 10.2 FL (9.6-12.0); Monocytes # 0.4 10*3/uL (0.11-0.8); Monocytes % 6.3 % (1.7-12.7); Neutrophils # 5.4 10*3/uL (1.4-7.4); Neutrophils % 78.1 % (38.7-73.9); Platelet Count 281 T/CUMM (130-400); Red Blood Count 4.14 MC/CUMM (3.8-5.5)
[2017-06-04 04:44] LABS: PT Patient Result 10.6 SECS
[2017-06-04] MEDS: PIPERACILLIN/TAZOBACTAM 3,375 MG in SODIUM CHLORIDE 0.9% 100 ML IV SCH ×3 (05:19→21:18)
[2017-06-04] MEDS: methylPREDNISolone SOD SUC 40 MG/1 ML VIAL IV SCH ×3 (05:19→21:18)
[2017-06-04 05:34] LABS: Albumin 2.3 G/DL (3.4-5.0); Bilirubin,Total 0.8 MG/DL (0.2-1.0); Calcium 8.1 MG/DL (8.5-10.1); Magnesium 2.4 MG/DL (1.8-2.4); Osmolality,Calculated 292.1 MOS/KG (273-304); Potassium 4.5 MMOL/L (3.5-5.1); Total Protein 5.5 G/DL (6.4-8.3)
[2017-06-04 06:39] LABS: Hypochromasia 1+; Lymphocytes 6 % (20-55); Platelet Estimate Adequate; Segmented Neutrophils 83 % (50-85); Total Cells Counted 100
[2017-06-04] MEDS: ALBUTEROL/IPRATROPIUM 3 ML NEB RESP TX SCH ×3 (07:28→20:49)
[2017-06-04] MEDS ORDERED: LIDOCAINE 100 MG/5 ML SYRINGE ONE (09:00)
[2017-06-04] MEDS ORDERED: PROPOFOL 200 MG/20 ML VIAL IV ONE (09:00)
[2017-06-04] MEDS: FUROSEMIDE 20 MG/2 ML VIAL IV SCH ×2 (09:02→17:11)
[2017-06-04] MEDS: PANTOPRAZOLE 40 MG VIAL IV SCH (09:04)
[2017-06-04] MEDS: BUDESONIDE/FORMOTEROL 80-4.5 INHALER 6.9 GM INH SCH ×2 (09:08→21:18)
[2017-06-04] MEDS ORDERED: INDOMETHACIN SUPP 50 MG SUPP RECTAL ONE (10:08)
[2017-06-04] MEDS: CARVEDILOL 25 MG TABLET PO SCH ×2 (13:56→17:11)
[2017-06-04] MEDS: DOCUSATE SODIUM 100 MG CAPSULE PO SCH ×2 (13:56→21:18)
[2017-06-04] MEDS: FERROUS SULFATE 325 MG TABLET PO SCH ×2 (13:57→21:18)
[2017-06-04] MEDS: CYANOCOBALAMIN 500 MCG TABLET PO SCH (13:58)
[2017-06-05] MEDS: INSULIN REGULAR 100 UNIT/ML SUBCUT SCH ×3 (01:07→12:00)
[2017-06-05] MEDS: PIPERACILLIN/TAZOBACTAM 3,375 MG in SODIUM CHLORIDE 0.9% 100 ML IV SCH ×2 (04:57→13:40)
[2017-06-05] MEDS: methylPREDNISolone SOD SUC 40 MG/1 ML VIAL IV SCH ×2 (05:05→13:37)
[2017-06-05] MEDS: ALBUTEROL/IPRATROPIUM 3 ML NEB RESP TX SCH (08:35)
[2017-06-05] MEDS: CARVEDILOL 25 MG TABLET PO SCH (09:09)
[2017-06-05] MEDS: FUROSEMIDE 20 MG/2 ML VIAL IV SCH ×2 (09:09→16:56)
[2017-06-05] MEDS: PANTOPRAZOLE 40 MG VIAL IV SCH (09:13)
[2017-06-05] MEDS: FERROUS SULFATE 325 MG TABLET PO SCH (09:13)
[2017-06-05] MEDS: DOCUSATE SODIUM 100 MG CAPSULE PO SCH (09:13)
[2017-06-05] MEDS: BUDESONIDE/FORMOTEROL 80-4.5 INHALER 6.9 GM INH SCH (09:17)
[2017-06-05] MEDS: CYANOCOBALAMIN 500 MCG TABLET PO SCH (09:17)
[2017-06-05 11:56] VITALS: BP 126/78
[2017-06-05] MEDS: SODIUM CHLORIDE 0.9% 1,000 ML IV SCH (16:55)
== END 2017-06-05 17:10 | disposition home health service (06) | DRG 445 ==
LOC: N.ED 13:54 → N.EDINP 15:44 → N.2E 16:50
PROVIDERS: ADMIT Internal Medicine; ATTEND Internal Medicine
PROC: ERCPWSP (ICD-10-PCS; 2017-06-04 09:05)

== ENCOUNTER 2017-07-14 09:26 | Inpatient (IN) ==
[2017-07-14] MEDS ORDERED: ALBUTEROL 2.5 MG/3 ML NEB RESP TX STA (09:58)
[2017-07-14] MEDS ORDERED: SODIUM CHLORIDE 0.9% 500 ML IV STA (09:59)
[2017-07-14 10:14] LABS: Basophils # 0.1 10*3/uL (0.0-0.2); Basophils % 0.6 % (0.0-0.8); Eosinophils % 0.4 % (0.00-10.9); Hematocrit 30.6 VOL% (42.0-52.0); Hemoglobin 9.1 GM/DL (14.0-18.0); Immature Granulocytes % 3.5 %; Immature Granulocytes Absolute 0.37 #; Lymphocytes # 1.1 10*3/uL (1.4-4.0); Lymphocytes % 10.1 % (21.2-54.2); Mean Corpuscular HGB Conc 29.7 GM/DL (32-36); Mean Corpuscular Hemoglobin 30 PG (27-34); Mean Corpuscular Volume 99.4 FL (87-102); Mean Platelet Volume 10.5 FL (9.6-12.0); Monocytes # 2.9 10*3/uL (0.11-0.8); NRBC # 0.16 10*3/uL; Neutrophils # 6.2 10*3/uL (1.4-7.4); Neutrophils % 58.4 % (38.7-73.9); Platelet Count 208 T/CUMM (130-400); Red Blood Count 3.08 MC/CUMM (3.8-5.5); Red Cell Distribution Width 22.2 % (9.3-17.3); White Blood Count 10.6 T/CUMM (4-12)
[2017-07-14] MEDS ORDERED: ALBUTEROL 2.5 MG/3 ML NEB RESP TX ONE (10:20)
[2017-07-14 10:22] LABS: INR 1.1; Partial Thromboplastin Time 30.6 SECS (0-40)
[2017-07-14 10:52] LABS: Band Neutrophils 2 % (0-10); Eosinophils 1 % (0-10); Giant Platelets Few; Hypochromasia 1+; Lymphocytes 9 % (20-55); Nucleated Red Blood Cells 2 (0-5); Ovalocytes Slight; Platelet Estimate Adequate; Segmented Neutrophils 68 % (50-85); Total Cells Counted 100
[2017-07-14 10:58] LABS: Albumin 2.5 G/DL (3.4-5.0); Bilirubin,Total 1.4 MG/DL (0.2-1.0); Calcium 8.9 MG/DL (8.5-10.1); Osmolality,Calculated 296.5 MOS/KG (273-304); Potassium 5.7 MMOL/L (3.5-5.1); Total Protein 5.6 G/DL (6.4-8.3)
[2017-07-14 11:04] LABS: Apearance,Urine Slightly Hazy (Clear); Bilirubin,Urine Negative (Negative); Blood, Urine Negative (Negative); Glucose,Urine (UA) Negative (Negative); Hyaline Casts,Urine 4 /LPF (0-3); Ketones,Urine Negative (Negative); Mucus,Urine Occasional /LPF (Occasional); Nitrite,Urine Negative (Negative); Protein,Urine Negative; Urine Color Yellow (Yellow); Urine Specific Gravity 1.016 (1.001-1.035); Urine Urobilinogen < 2.0 EU/DL (0.2-1.0); WBC,Urine 1 /HPF (0-6)
[2017-07-14] MEDS ORDERED: SODIUM CHLORIDE 0.9% 1,000 ML IV ONE (15:06)
[2017-07-14] MEDS ORDERED: SODIUM POLYSTYRENE SULFATE 15 GM/60 ML BOTTLE PO ONE (15:06)
[2017-07-14] MEDS ORDERED: SODIUM CHLORIDE 0.9% 3,050 ML IV ONE (15:08)
[2017-07-14] MEDS ORDERED: MORPHINE 10 MG/1 ML VIAL IV PRN (15:12)
[2017-07-14] MEDS ORDERED: ACETAMINOPHEN 325 MG TABLET PO PRN (15:12)
[2017-07-14] MEDS ORDERED: diphenhydrAMINE CAP 25 MG CAPSULE PO PRN (15:12)
[2017-07-14] MEDS ORDERED: DOCUSATE SODIUM 100 MG CAPSULE PO PRN (15:12)
[2017-07-14] MEDS ORDERED: ONDANSETRON 4 MG/2 ML VIAL IV PRN (15:12)
[2017-07-14] MEDS ORDERED: PIPERACILLIN/TAZOBACTAM 3,375 MG in SODIUM CHLORIDE 0.9% 100 ML IV SCH (15:30)
[2017-07-14 16:03] LABS: ABG Base Excess 2.4 MMOL/L (-2.5-2.5); ABG HCO3 27.1 MMOL/L (20-26); ABG Oxygen Saturation 94.8 % (95-100); ABG PCO2 42.6 MM HG (35-48); ABG PH 7.421 (7.35-7.45); ABG PO2 84.9 MM HG (80-95); ABG TCO2 28.4 MMOL/L (23-27)
[2017-07-14] MEDS ORDERED: ALBUTEROL 2.5 MG/3 ML NEB RESP TX PRN (16:03)
[2017-07-14] MEDS ORDERED: GLUCAGON 1 MG VIAL IM PRN (16:24)
[2017-07-14] MEDS: PANTOPRAZOLE 40 MG TABLET PO SCH (17:55)
[2017-07-14] MEDS: methylPREDNISolone SOD SUC 40 MG/1 ML VIAL IV SCH ×2 (17:55→23:42)
[2017-07-14] MEDS: SODIUM CHLORIDE 0.9% 1,000 ML IV SCH (17:56)
[2017-07-14] MEDS: INSULIN LISPRO 100 UNIT/ML SUBCUT SCH ×2 (18:00→20:50)
[2017-07-14] MEDS: ALBUTEROL/IPRATROPIUM 3 ML NEB RESP TX SCH (19:28)
[2017-07-14 20:49] LABS: Apearance,Urine Slightly Hazy (Clear); Bilirubin,Urine Negative (Negative); Blood, Urine Negative (Negative); Glucose,Urine (UA) Negative (Negative); Ketones,Urine Negative (Negative); Nitrite,Urine Negative (Negative); Protein,Urine Negative; Urine Color Yellow (Yellow); Urine Specific Gravity 1.013 (1.001-1.035); Urine Urobilinogen < 2.0 EU/DL (0.2-1.0); WBC,Urine <1 /HPF (0-6)
[2017-07-14] MEDS: BUDESONIDE/FORMOTEROL 160-4.5 INHALER 6 GM INH SCH (20:51)
[2017-07-14] MEDS: ENOXAPARIN 30 MG/0.3 ML SYRINGE SUBCUT SCH (20:51)
[2017-07-14] MEDS: PIPERACILLIN/TAZOBACTAM 3,375 MG in SODIUM CHLORIDE 0.9% 100 ML IV SCH (20:52)
[2017-07-14 23:23] LABS: Calcium 8.4 MG/DL (8.5-10.1); Osmolality,Calculated 302.1 MOS/KG (273-304)
[2017-07-14 23:29] LABS: Potassium 6.3 MMOL/L (3.5-5.1)
[2017-07-14] MEDS ORDERED: BUMETANIDE 1 MG/4 ML VIAL IV ONE (23:34)
[2017-07-15] MEDS: ALBUTEROL/IPRATROPIUM 3 ML NEB RESP TX SCH ×4 (00:08→19:28)
[2017-07-15] MEDS ORDERED: PHENYLEPHRINE DRIP 40 MG/250 ML PREMIX IV ONE (03:47)
[2017-07-15] MEDS: PIPERACILLIN/TAZOBACTAM 3,375 MG in SODIUM CHLORIDE 0.9% 100 ML IV SCH ×3 (04:01→19:59)
[2017-07-15 06:35] LABS: Albumin 2.2 G/DL (3.4-5.0); Bilirubin,Total 1.4 MG/DL (0.2-1.0); Calcium 7.9 MG/DL (8.5-10.1); Potassium 5.4 MMOL/L (3.5-5.1); Total Protein 5.2 G/DL (6.4-8.3)
[2017-07-15 06:36] LABS: Magnesium 2.7 MG/DL (1.8-2.4); Risk Ratio 9.5; VLDL CHOLESTEROL 67.6 MG/DL
[2017-07-15 06:57] LABS: Basophils % 0.1 % (0.0-0.8); Hematocrit 25.4 VOL% (42.0-52.0); Immature Granulocytes % 4.2 %; Lymphocytes # 0.8 10*3/uL (1.4-4.0); Lymphocytes % 11.1 % (21.2-54.2); Mean Corpuscular HGB Conc 30.7 GM/DL (32-36); Mean Corpuscular Hemoglobin 30 PG (27-34); Mean Corpuscular Volume 98.1 FL (87-102); Mean Platelet Volume 10.6 FL (9.6-12.0); Monocytes # 1.4 10*3/uL (0.11-0.8); Monocytes % 19.2 % (1.7-12.7); NRBC # 0.09 10*3/uL; Neutrophils # 4.7 10*3/uL (1.4-7.4); Neutrophils % 65.4 % (38.7-73.9); Platelet Count 183 T/CUMM (130-400); Red Blood Count 2.59 MC/CUMM (3.8-5.5); Red Cell Distribution Width 22.5 % (9.3-17.3)
[2017-07-15 07:00] LABS: Hemoglobin 7.8 GM/DL (14.0-18.0); White Blood Count 7.1 T/CUMM (4-12)
[2017-07-15 07:09] LABS: Band Neutrophils 3 % (0-10); Giant Platelets Few; Hypochromasia 1+; Lymphocytes 11 % (20-55); Nucleated Red Blood Cells 1 (0-5); Platelet Estimate Normal; Segmented Neutrophils 74 % (50-85); Total Cells Counted 100
[2017-07-15] MEDS: methylPREDNISolone SOD SUC 40 MG/1 ML VIAL IV SCH ×2 (07:53→15:38)
[2017-07-15] MEDS: guaiFENesin/DM ER 600-30 MG TABLET PO PRN (07:57)
[2017-07-15] MEDS: INSULIN LISPRO 100 UNIT/ML SUBCUT SCH ×4 (08:06→21:59)
[2017-07-15] MEDS: SODIUM CHLORIDE 0.9% 1,000 ML IV SCH (08:06)
[2017-07-15] MEDS: BUDESONIDE/FORMOTEROL 160-4.5 INHALER 6 GM INH SCH ×2 (08:08→21:59)
[2017-07-15] MEDS: PANTOPRAZOLE 40 MG TABLET PO SCH (08:08)
[2017-07-15] MEDS ORDERED: SODIUM POLYSTYRENE SULFATE 15 GM/60 ML BOTTLE PO STA (12:24)
[2017-07-15 13:40] LABS: Free T4 (Free Thyroxine) 1.85 NG/DL (0.76-1.46); Thyroid Stimulating Hormone 0.41 uIU/ml (0.358-3.74)
[2017-07-15 17:32] LABS: Apearance,Urine CLOUDY (Clear); Bilirubin,Urine Negative (Negative); Blood, Urine Large mg/dL (Negative); Glucose,Urine (UA) Negative (Negative); Ketones,Urine Negative (Negative); Mucus,Urine Occasional /LPF (Occasional); Nitrite,Urine Negative (Negative); Protein,Urine 30 MG/DL; RBC,Urine 194 /HPF (0-4); Squamous Epithelial Cell,Urine Occasional /HPF (0-10); Urine Color Yellow (Yellow); Urine Specific Gravity 1.016 (1.001-1.035); Urine Urobilinogen < 2.0 EU/DL (0.2-1.0); WBC,Urine 24 /HPF (0-6)
[2017-07-15] MEDS: ENOXAPARIN 30 MG/0.3 ML SYRINGE SUBCUT SCH (21:59)
[2017-07-15] MEDS: SODIUM BICARB INJ 50 MEQ in SODIUM CHLORIDE 0.45% 1,000 ML IV SCH (22:00)
[2017-07-16] MEDS: ALBUTEROL/IPRATROPIUM 3 ML NEB RESP TX SCH ×4 (00:24→21:27)
[2017-07-16] MEDS: methylPREDNISolone SOD SUC 40 MG/1 ML VIAL IV SCH ×3 (01:18→15:00)
[2017-07-16] MEDS: PIPERACILLIN/TAZOBACTAM 3,375 MG in SODIUM CHLORIDE 0.9% 100 ML IV SCH ×2 (03:41→15:10)
[2017-07-16 05:31] LABS: Magnesium 2.7 MG/DL (1.8-2.4); Prealbumin 9.6 MG/DL (20-40)
[2017-07-16 05:36] LABS: Albumin 2.2 G/DL (3.4-5.0); Bilirubin,Total 1.6 MG/DL (0.2-1.0); Calcium 8.1 MG/DL (8.5-10.1); Potassium 4.4 MMOL/L (3.5-5.1); Total Protein 4.9 G/DL (6.4-8.3)
[2017-07-16] MEDS: INSULIN LISPRO 100 UNIT/ML SUBCUT SCH ×4 (07:39→21:40)
[2017-07-16] MEDS ORDERED: hydrALAZINE 25 MG TABLET PO SCH (09:00)
[2017-07-16] MEDS ORDERED: FUROSEMIDE 40 MG TABLET PO SCH (09:00)
[2017-07-16] MEDS: IPRATROPIUM 500 MCG/2.5 ML NEB RESP TX SCH ×3 (09:31→21:28)
[2017-07-16] MEDS: COLESTIPOL 1 GM TABLET PO SCH (09:43)
[2017-07-16] MEDS: FERROUS SULFATE 325 MG TABLET PO SCH ×2 (09:43→21:42)
[2017-07-16] MEDS: MAGNESIUM OXIDE 400 MG TABLET PO SCH (09:43)
[2017-07-16] MEDS: PANTOPRAZOLE 40 MG TABLET PO SCH ×2 (09:44→21:43)
[2017-07-16] MEDS: DOCUSATE SODIUM 100 MG CAPSULE PO SCH ×2 (09:44→21:42)
[2017-07-16] MEDS: CYANOCOBALAMIN 500 MCG TABLET PO SCH (09:45)
[2017-07-16] MEDS: SPIRONOLACTONE 50 MG TABLET PO SCH (09:45)
[2017-07-16] MEDS: BUDESONIDE/FORMOTEROL 80-4.5 INHALER 6.9 GM INH SCH ×2 (09:56→21:42)
[2017-07-16] MEDS: SODIUM BICARB INJ 50 MEQ in SODIUM CHLORIDE 0.45% 1,000 ML IV SCH (10:15)
[2017-07-16] MEDS: APIXABAN 2.5 MG TABLET PO SCH ×2 (16:53→21:42)
[2017-07-16] MEDS: SODIUM CHLORIDE 0.9% 1,000 ML IV SCH (16:54)
[2017-07-16] MEDS ORDERED: FAMOTIDINE 20 MG TABLET PO SCH (21:00)
[2017-07-17] MEDS: PIPERACILLIN/TAZOBACTAM 3,375 MG in SODIUM CHLORIDE 0.9% 100 ML IV SCH ×4 (00:42→23:08)
[2017-07-17] MEDS: methylPREDNISolone SOD SUC 40 MG/1 ML VIAL IV SCH ×4 (00:42→17:27)
[2017-07-17] MEDS: ALBUTEROL/IPRATROPIUM 3 ML NEB RESP TX SCH ×4 (02:37→19:30)
[2017-07-17] MEDS: SODIUM BICARB INJ 50 MEQ in SODIUM CHLORIDE 0.45% 1,000 ML IV SCH ×2 (04:42→12:17)
[2017-07-17 05:35] LABS: Hematocrit 24.8 VOL% (42.0-52.0); Hemoglobin 7.6 GM/DL (14.0-18.0); Immature Granulocytes % 1.8 %; Immature Granulocytes Absolute 0.18 #; Lymphocytes # 0.6 10*3/uL (1.4-4.0); Lymphocytes % 5.5 % (21.2-54.2); Mean Corpuscular HGB Conc 30.6 GM/DL (32-36); Mean Corpuscular Hemoglobin 30 PG (27-34); Mean Corpuscular Volume 98.8 FL (87-102); Mean Platelet Volume 10.7 FL (9.6-12.0); Monocytes # 1.8 10*3/uL (0.11-0.8); Monocytes % 17.9 % (1.7-12.7); NRBC # 0.15 10*3/uL; Neutrophils # 7.6 10*3/uL (1.4-7.4); Neutrophils % 74.8 % (38.7-73.9); Platelet Count 159 T/CUMM (130-400); Red Blood Count 2.51 MC/CUMM (3.8-5.5); Red Cell Distribution Width 23.7 % (9.3-17.3); White Blood Count 10.1 T/CUMM (4-12)
[2017-07-17 06:01] LABS: Calcium 7.4 MG/DL (8.5-10.1); Osmolality,Calculated 310.4 MOS/KG (273-304); Potassium 3.8 MMOL/L (3.5-5.1)
[2017-07-17 06:48] LABS: Band Neutrophils 1 % (0-10); Giant Platelets Few; Hypochromasia 1+; Lymphocytes 6 % (20-55); Nucleated Red Blood Cells 3 (0-5); Ovalocytes Slight; Platelet Estimate Normal; Segmented Neutrophils 77 % (50-85); Total Cells Counted 100
[2017-07-17] MEDS: IPRATROPIUM 500 MCG/2.5 ML NEB RESP TX SCH ×3 (08:40→17:28)
[2017-07-17] MEDS: SPIRONOLACTONE 50 MG TABLET PO SCH (09:12)
[2017-07-17] MEDS: CYANOCOBALAMIN 500 MCG TABLET PO SCH (09:12)
[2017-07-17] MEDS: MAGNESIUM OXIDE 400 MG TABLET PO SCH (09:12)
[2017-07-17] MEDS: COLESTIPOL 1 GM TABLET PO SCH (09:12)
[2017-07-17] MEDS: DOCUSATE SODIUM 100 MG CAPSULE PO SCH ×2 (09:13→20:55)
[2017-07-17] MEDS: FERROUS SULFATE 325 MG TABLET PO SCH ×2 (09:13→20:55)
[2017-07-17] MEDS: PANTOPRAZOLE 40 MG TABLET PO SCH ×2 (09:13→20:55)
[2017-07-17] MEDS: APIXABAN 2.5 MG TABLET PO SCH ×2 (09:13→20:55)
[2017-07-17] MEDS: INSULIN LISPRO 100 UNIT/ML SUBCUT SCH ×4 (09:13→22:27)
[2017-07-17] MEDS: BUDESONIDE/FORMOTEROL 80-4.5 INHALER 6.9 GM INH SCH ×2 (09:20→20:53)
[2017-07-17] MEDS: FLUCONAZOLE 200 MG TABLET PO SCH (12:14)
[2017-07-17] MEDS: CLOTRIMAZOLE 10 MG TROCHE PO SCH ×3 (15:21→23:07)
[2017-07-18] MEDS: ALBUTEROL/IPRATROPIUM 3 ML NEB RESP TX SCH ×4 (00:01→20:14)
[2017-07-18] MEDS: IPRATROPIUM 500 MCG/2.5 ML NEB RESP TX SCH ×3 (00:58→13:41)
[2017-07-18] MEDS: methylPREDNISolone SOD SUC 40 MG/1 ML VIAL IV SCH ×3 (01:05→18:53)
[2017-07-18 06:25] LABS: Basophils % 0.1 % (0.0-0.8); Hematocrit 26.3 VOL% (42.0-52.0); Hemoglobin 7.6 GM/DL (14.0-18.0); Immature Granulocytes % 2.3 %; Lymphocytes # 0.5 10*3/uL (1.4-4.0); Lymphocytes % 5.8 % (21.2-54.2); Mean Corpuscular HGB Conc 28.9 GM/DL (32-36); Mean Corpuscular Hemoglobin 30 PG (27-34); Mean Corpuscular Volume 103.1 FL (87-102); Mean Platelet Volume 10.8 FL (9.6-12.0); Monocytes # 1.3 10*3/uL (0.11-0.8); Monocytes % 15.7 % (1.7-12.7); NRBC # 0.19 10*3/uL; Neutrophils # 6.5 10*3/uL (1.4-7.4); Neutrophils % 76.1 % (38.7-73.9); Platelet Count 119 T/CUMM (130-400); Red Blood Count 2.55 MC/CUMM (3.8-5.5); Red Cell Distribution Width 23.5 % (9.3-17.3); White Blood Count 8.6 T/CUMM (4-12)
[2017-07-18] MEDS: PIPERACILLIN/TAZOBACTAM 3,375 MG in SODIUM CHLORIDE 0.9% 100 ML IV SCH ×2 (06:28→16:07)
[2017-07-18] MEDS: CLOTRIMAZOLE 10 MG TROCHE PO SCH ×5 (06:28→22:16)
[2017-07-18 06:50] LABS: Calcium 7.8 MG/DL (8.5-10.1); Osmolality,Calculated 307.6 MOS/KG (273-304); Potassium 3.5 MMOL/L (3.5-5.1)
[2017-07-18 08:17] LABS: Lymphocytes 6 % (20-55); Nucleated Red Blood Cells 2 (0-5); Segmented Neutrophils 81 % (50-85); Total Cells Counted 100
[2017-07-18 08:18] LABS: Giant Platelets Few; Hypochromasia 1+; Microcytosis Slight; Platelet Estimate Decreased
[2017-07-18] MEDS: INSULIN LISPRO 100 UNIT/ML SUBCUT SCH ×4 (09:13→22:09)
[2017-07-18] MEDS: FERROUS SULFATE 325 MG TABLET PO SCH ×2 (09:36→22:11)
[2017-07-18] MEDS: MAGNESIUM OXIDE 400 MG TABLET PO SCH (09:36)
[2017-07-18] MEDS: APIXABAN 2.5 MG TABLET PO SCH ×2 (09:36→22:11)
[2017-07-18] MEDS: guaiFENesin/DM ER 600-30 MG TABLET PO PRN (09:36)
[2017-07-18] MEDS: CYANOCOBALAMIN 500 MCG TABLET PO SCH (09:36)
[2017-07-18] MEDS: FLUCONAZOLE 200 MG TABLET PO SCH (09:37)
[2017-07-18] MEDS: SPIRONOLACTONE 50 MG TABLET PO SCH (09:37)
[2017-07-18] MEDS: DOCUSATE SODIUM 100 MG CAPSULE PO SCH ×2 (09:37→22:12)
[2017-07-18] MEDS: PANTOPRAZOLE 40 MG TABLET PO SCH ×2 (09:37→22:11)
[2017-07-18] MEDS: COLESTIPOL 1 GM TABLET PO SCH (09:37)
[2017-07-18] MEDS: BUDESONIDE/FORMOTEROL 80-4.5 INHALER 6.9 GM INH SCH ×2 (09:38→22:13)
[2017-07-18] MEDS: ZINC OXIDE PASTE 113 GM TUBE TOP PRN (09:45)
[2017-07-18] MEDS: POTASSIUM CHLORIDE INJ 40 MEQ in SODIUM CHLORIDE 0.45% 1,000 ML IV SCH (10:48)
[2017-07-18] MEDS: LEVOFLOXACIN INJ 250 MG in PREMIX 1 EACH IV SCH (15:40)
[2017-07-18] MEDS: VANCOMYCIN INJ 1,500 MG in SODIUM CHLORIDE 0.9% 500 ML IV SCH (17:52)
[2017-07-19] MEDS: methylPREDNISolone SOD SUC 40 MG/1 ML VIAL IV SCH ×3 (00:52→18:44)
[2017-07-19] MEDS: ALBUTEROL/IPRATROPIUM 3 ML NEB RESP TX SCH ×4 (01:01→20:03)
[2017-07-19 05:10] LABS: Basophils % 0.2 % (0.0-0.8); Hematocrit 27.8 VOL% (42.0-52.0); Hemoglobin 8.2 GM/DL (14.0-18.0); Immature Granulocytes % 2.7 %; Immature Granulocytes Absolute 0.32 #; Lymphocytes # 0.8 10*3/uL (1.4-4.0); Lymphocytes % 6.5 % (21.2-54.2); Mean Corpuscular HGB Conc 29.5 GM/DL (32-36); Mean Corpuscular Hemoglobin 31 PG (27-34); Mean Corpuscular Volume 104.1 FL (87-102); Mean Platelet Volume 11.3 FL (9.6-12.0); Monocytes # 1.4 10*3/uL (0.11-0.8); Monocytes % 11.6 % (1.7-12.7); NRBC # 0.38 10*3/uL; Neutrophils # 9.3 10*3/uL (1.4-7.4); Platelet Count 117 T/CUMM (130-400); Red Blood Count 2.67 MC/CUMM (3.8-5.5); Red Cell Distribution Width 23.7 % (9.3-17.3); White Blood Count 11.7 T/CUMM (4-12)
[2017-07-19 05:55] LABS: Band Neutrophils 3 % (0-10); Lymphocytes 1 % (20-55); Nucleated Red Blood Cells 3 (0-5); Segmented Neutrophils 89 % (50-85)
[2017-07-19 05:56] LABS: Calcium 7.7 MG/DL (8.5-10.1); Hypochromasia 1+; Polychromasia 1+; Potassium 4.4 MMOL/L (3.5-5.1)
[2017-07-19 05:57] LABS: Anisocytosis Slight; Microcytosis Slight; Platelet Estimate Normal
[2017-07-19 05:58] LABS: Total Cells Counted 100
[2017-07-19] MEDS: CLOTRIMAZOLE 10 MG TROCHE PO SCH ×2 (06:23→09:37)
[2017-07-19] MEDS: POTASSIUM CHLORIDE INJ 40 MEQ in SODIUM CHLORIDE 0.45% 1,000 ML IV SCH ×2 (07:32→12:10)
[2017-07-19] MEDS: INSULIN LISPRO 100 UNIT/ML SUBCUT SCH ×4 (07:56→20:33)
[2017-07-19] MEDS: SPIRONOLACTONE 50 MG TABLET PO SCH (09:36)
[2017-07-19] MEDS: CYANOCOBALAMIN 500 MCG TABLET PO SCH (09:36)
[2017-07-19] MEDS: FLUCONAZOLE 200 MG TABLET PO SCH (09:36)
[2017-07-19] MEDS: MAGNESIUM OXIDE 400 MG TABLET PO SCH (09:36)
[2017-07-19] MEDS: FERROUS SULFATE 325 MG TABLET PO SCH ×2 (09:37→20:33)
[2017-07-19] MEDS: DOCUSATE SODIUM 100 MG CAPSULE PO SCH ×2 (09:37→20:33)
[2017-07-19] MEDS: APIXABAN 2.5 MG TABLET PO SCH ×2 (09:37→20:33)
[2017-07-19] MEDS: PANTOPRAZOLE 40 MG TABLET PO SCH ×2 (09:37→20:32)
[2017-07-19] MEDS: COLESTIPOL 1 GM TABLET PO SCH (09:40)
[2017-07-19] MEDS: BUDESONIDE/FORMOTEROL 80-4.5 INHALER 6.9 GM INH SCH ×2 (09:42→20:34)
[2017-07-19] MEDS: LEVOFLOXACIN INJ 250 MG in PREMIX 1 EACH IV SCH (17:55)
[2017-07-19] MEDS: VANCOMYCIN INJ 1,500 MG in SODIUM CHLORIDE 0.9% 500 ML IV SCH (18:44)
[2017-07-19] MEDS: CARVEDILOL 25 MG TABLET PO SCH (23:07)
[2017-07-20] MEDS: ALBUTEROL/IPRATROPIUM 3 ML NEB RESP TX SCH ×4 (00:21→20:00)
[2017-07-20] MEDS: methylPREDNISolone SOD SUC 40 MG/1 ML VIAL IV SCH ×3 (01:22→17:28)
[2017-07-20] MEDS: POTASSIUM CHLORIDE INJ 40 MEQ in SODIUM CHLORIDE 0.45% 1,000 ML IV SCH ×2 (01:27→10:03)
[2017-07-20 06:42] LABS: Ferritin 2644.8 ng/ml (26-388)
[2017-07-20 09:29] LABS: Hematocrit 28.6 VOL% (42.0-52.0); Hemoglobin 8.3 GM/DL (14.0-18.0)
[2017-07-20] MEDS: INSULIN LISPRO 100 UNIT/ML SUBCUT SCH ×4 (09:47→20:32)
[2017-07-20] MEDS: FERROUS SULFATE 325 MG TABLET PO SCH ×2 (09:51→20:27)
[2017-07-20] MEDS: APIXABAN 2.5 MG TABLET PO SCH ×2 (09:51→20:27)
[2017-07-20] MEDS: CARVEDILOL 25 MG TABLET PO SCH ×2 (09:51→20:27)
[2017-07-20] MEDS: MAGNESIUM OXIDE 400 MG TABLET PO SCH (09:51)
[2017-07-20] MEDS: CYANOCOBALAMIN 500 MCG TABLET PO SCH (09:51)
[2017-07-20] MEDS: SPIRONOLACTONE 50 MG TABLET PO SCH (09:51)
[2017-07-20] MEDS: PANTOPRAZOLE 40 MG TABLET PO SCH ×2 (09:51→20:27)
[2017-07-20] MEDS: COLESTIPOL 1 GM TABLET PO SCH (09:51)
[2017-07-20] MEDS: FLUCONAZOLE 200 MG TABLET PO SCH (09:51)
[2017-07-20] MEDS: BUDESONIDE/FORMOTEROL 80-4.5 INHALER 6.9 GM INH SCH ×2 (09:52→20:33)
[2017-07-20] MEDS: DOCUSATE SODIUM 100 MG CAPSULE PO SCH ×2 (10:02→20:27)
[2017-07-20] MEDS: IPRATROPIUM 500 MCG/2.5 ML NEB RESP TX SCH ×4 (11:36→14:20)
[2017-07-20 12:41] LABS: Folate 6.5 NG/ML (5.4-24.0); Vitamin B12 > 2000 PG/ML (211-911)
[2017-07-20] MEDS: DILTIAZEM CD 120 MG CAPSULE PO SCH (17:19)
[2017-07-20] MEDS: LEVOFLOXACIN INJ 250 MG in PREMIX 1 EACH IV SCH (17:20)
[2017-07-20] MEDS: VANCOMYCIN INJ 1,500 MG in SODIUM CHLORIDE 0.9% 500 ML IV SCH (18:35)
[2017-07-21] MEDS: ALBUTEROL/IPRATROPIUM 3 ML NEB RESP TX SCH ×4 (00:10→20:00)
[2017-07-21] MEDS: methylPREDNISolone SOD SUC 40 MG/1 ML VIAL IV SCH ×3 (02:37→17:55)
[2017-07-21 06:14] LABS: Hematocrit 28.1 VOL% (42.0-52.0); Hemoglobin 8.2 GM/DL (14.0-18.0)
[2017-07-21 06:44] LABS: Calcium 7.3 MG/DL (8.5-10.1); Magnesium 2.8 MG/DL (1.8-2.4); Osmolality,Calculated 323.7 MOS/KG (273-304); Potassium 5.9 MMOL/L (3.5-5.1)
[2017-07-21 06:45] LABS: Troponin I Only < 0.015 NG/ML (0.00-0.045)
[2017-07-21] MEDS: INSULIN LISPRO 100 UNIT/ML SUBCUT SCH ×4 (08:37→21:33)
[2017-07-21] MEDS ORDERED: SODIUM CHLORIDE 0.9% 1,000 ML IV PRN (10:00)
[2017-07-21] MEDS: CYANOCOBALAMIN 500 MCG TABLET PO SCH (10:02)
[2017-07-21] MEDS: APIXABAN 2.5 MG TABLET PO SCH ×2 (10:03→20:45)
[2017-07-21] MEDS: FLUCONAZOLE 200 MG TABLET PO SCH (10:03)
[2017-07-21] MEDS: DILTIAZEM CD 120 MG CAPSULE PO SCH (10:03)
[2017-07-21] MEDS: MAGNESIUM OXIDE 400 MG TABLET PO SCH (10:03)
[2017-07-21] MEDS: PANTOPRAZOLE 40 MG TABLET PO SCH ×2 (10:03→20:45)
[2017-07-21] MEDS: FERROUS SULFATE 325 MG TABLET PO SCH ×2 (10:04→20:45)
[2017-07-21] MEDS: SODIUM CHLORIDE 0.9% 1,000 ML IV SCH ×2 (10:04→20:31)
[2017-07-21] MEDS: CARVEDILOL 25 MG TABLET PO SCH (10:04)
[2017-07-21] MEDS: BUDESONIDE/FORMOTEROL 80-4.5 INHALER 6.9 GM INH SCH ×2 (10:04→20:55)
[2017-07-21] MEDS: COLESTIPOL 1 GM TABLET PO SCH (10:04)
[2017-07-21] MEDS: DOCUSATE SODIUM 100 MG CAPSULE PO SCH ×2 (11:11→21:33)
[2017-07-21] MEDS: SPIRONOLACTONE 50 MG TABLET PO SCH (11:11)
[2017-07-21 12:11] LABS: ABG Base Excess -5.4 MMOL/L (-2.5-2.5); ABG HCO3 19.8 MMOL/L (20-26); ABG PCO2 42.1 MM HG (35-48); ABG PO2 65.5 MM HG (80-95); ABG TCO2 19.5 MMOL/L (23-27)
[2017-07-21 12:40] LABS: Apearance,Urine CLOUDY (Clear); Bilirubin,Urine Negative (Negative); Blood, Urine Large mg/dL (Negative); Glucose,Urine (UA) Negative (Negative); Ketones,Urine Negative (Negative); Nitrite,Urine Negative (Negative); Protein,Urine Negative; RBC,Urine 166 /HPF (0-4); Urine Color Yellow (Yellow); Urine Specific Gravity 1.012 (1.001-1.035); Urine Urobilinogen < 2.0 EU/DL (0.2-1.0)
[2017-07-21] MEDS: LEVOFLOXACIN INJ 250 MG in PREMIX 1 EACH IV SCH (17:55)
[2017-07-22] MEDS: ALBUTEROL/IPRATROPIUM 3 ML NEB RESP TX SCH ×4 (01:23→20:09)
[2017-07-22] MEDS: CARVEDILOL 12.5 MG TABLET PO SCH ×3 (01:47→16:38)
[2017-07-22] MEDS: methylPREDNISolone SOD SUC 40 MG/1 ML VIAL IV SCH ×3 (02:17→16:38)
[2017-07-22 05:16] LABS: Basophils % 0.1 % (0.0-0.8); Hematocrit 33.7 VOL% (42.0-52.0); Hemoglobin 10.3 GM/DL (14.0-18.0); Immature Granulocytes % 3.1 %; Immature Granulocytes Absolute 0.42 #; Lymphocytes # 0.6 10*3/uL (1.4-4.0); Lymphocytes % 4.5 % (21.2-54.2); Mean Corpuscular HGB Conc 30.6 GM/DL (32-36); Mean Corpuscular Hemoglobin 31 PG (27-34); Mean Corpuscular Volume 102.7 FL (87-102); Mean Platelet Volume 12.3 FL (9.6-12.0); Monocytes % 7.3 % (1.7-12.7); NRBC # 0.58 10*3/uL; Neutrophils # 11.6 10*3/uL (1.4-7.4); Red Blood Count 3.28 MC/CUMM (3.8-5.5); Red Cell Distribution Width 25.7 % (9.3-17.3); White Blood Count 13.6 T/CUMM (4-12)
[2017-07-22 05:29] LABS: Platelet Count 66 T/CUMM (130-400)
[2017-07-22] MEDS: SODIUM CHLORIDE 0.9% 1,000 ML IV SCH ×2 (06:06→06:07)
[2017-07-22 06:17] LABS: Albumin 1.8 G/DL (3.4-5.0); Bilirubin,Total 1.1 MG/DL (0.2-1.0); Calcium 7.6 MG/DL (8.5-10.1); Osmolality,Calculated 328.6 MOS/KG (273-304); Total Protein 4.5 G/DL (6.4-8.3)
[2017-07-22 06:25] LABS: Potassium 6.1 MMOL/L (3.5-5.1)
[2017-07-22 07:01] LABS: Giant Platelets Few; Hypochromasia 1+; Lymphocytes 2 % (20-55); Microcytosis Slight; Nucleated Red Blood Cells 4 (0-5); Platelet Estimate Decreased; Segmented Neutrophils 90 % (50-85); Total Cells Counted 100
[2017-07-22 07:02] LABS: Ovalocytes Slight
[2017-07-22] MEDS ORDERED: SODIUM POLYSTYRENE SULFATE 15 GM/60 ML BOTTLE PO STA (08:04)
[2017-07-22] MEDS: INSULIN LISPRO 100 UNIT/ML SUBCUT SCH ×4 (08:07→21:29)
[2017-07-22] MEDS: PANTOPRAZOLE 40 MG TABLET PO SCH ×2 (09:24→21:26)
[2017-07-22] MEDS: CYANOCOBALAMIN 500 MCG TABLET PO SCH (09:24)
[2017-07-22] MEDS: FERROUS SULFATE 325 MG TABLET PO SCH ×2 (09:24→21:25)
[2017-07-22] MEDS: COLESTIPOL 1 GM TABLET PO SCH (09:24)
[2017-07-22] MEDS: APIXABAN 2.5 MG TABLET PO SCH ×2 (09:24→21:26)
[2017-07-22] MEDS: MAGNESIUM OXIDE 400 MG TABLET PO SCH ×2 (09:25→09:37)
[2017-07-22] MEDS: FLUCONAZOLE 200 MG TABLET PO SCH (09:25)
[2017-07-22] MEDS: BUDESONIDE/FORMOTEROL 80-4.5 INHALER 6.9 GM INH SCH ×2 (09:25→21:36)
[2017-07-22] MEDS: DOCUSATE SODIUM 100 MG CAPSULE PO SCH ×2 (11:41→21:26)
[2017-07-22] MEDS: SODIUM BICARB INJ 50 MEQ in DEXTROSE 5% 950 ML IV SCH (12:45)
[2017-07-22] MEDS: MUPIROCIN 2% OINT 22 GM TUBE TOP SCH ×2 (13:19→21:30)
[2017-07-22] MEDS: LEVOFLOXACIN INJ 250 MG in PREMIX 1 EACH IV SCH (16:39)
[2017-07-22] MEDS: VANCOMYCIN 50 MG/ML 60 ML/BOTTLE PO SCH (21:35)
[2017-07-23] MEDS: ALBUTEROL/IPRATROPIUM 3 ML NEB RESP TX SCH ×4 (00:23→19:50)
[2017-07-23] MEDS: methylPREDNISolone SOD SUC 40 MG/1 ML VIAL IV SCH ×3 (01:42→16:22)
[2017-07-23] MEDS: SODIUM BICARB INJ 50 MEQ in DEXTROSE 5% 950 ML IV SCH ×3 (03:15→16:23)
[2017-07-23] MEDS: VANCOMYCIN 50 MG/ML 60 ML/BOTTLE PO SCH ×3 (06:05→21:49)
[2017-07-23 06:19] LABS: Basophils % 0.1 % (0.0-0.8); Hematocrit 32.1 VOL% (42.0-52.0); Immature Granulocytes % 4.3 %; Immature Granulocytes Absolute 0.66 #; Lymphocytes # 0.7 10*3/uL (1.4-4.0); Lymphocytes % 4.6 % (21.2-54.2); Mean Corpuscular HGB Conc 31.2 GM/DL (32-36); Mean Corpuscular Hemoglobin 31 PG (27-34); Mean Corpuscular Volume 100.9 FL (87-102); Mean Platelet Volume 12.6 FL (9.6-12.0); Monocytes # 1.3 10*3/uL (0.11-0.8); Monocytes % 8.3 % (1.7-12.7); Neutrophils # 12.8 10*3/uL (1.4-7.4); Neutrophils % 82.7 % (38.7-73.9); Platelet Count 65 T/CUMM (130-400); Red Blood Count 3.18 MC/CUMM (3.8-5.5); Red Cell Distribution Width 25.7 % (9.3-17.3); White Blood Count 15.5 T/CUMM (4-12)
[2017-07-23 06:46] LABS: Calcium 7.6 MG/DL (8.5-10.1); Magnesium 2.6 MG/DL (1.8-2.4)
[2017-07-23 07:03] LABS: Band Neutrophils 3 % (0-10); Giant Platelets Few; Hypochromasia 1+; Lymphocytes 2 % (20-55); Macrocytosis Slight; Nucleated Red Blood Cells 7 (0-5); Platelet Estimate Decreased; Polychromasia Slight; Segmented Neutrophils 91 % (50-85); Total Cells Counted 100
[2017-07-23] MEDS: INSULIN LISPRO 100 UNIT/ML SUBCUT SCH ×4 (08:38→20:45)
[2017-07-23] MEDS: MAGNESIUM OXIDE 400 MG TABLET PO SCH (08:41)
[2017-07-23] MEDS: CARVEDILOL 12.5 MG TABLET PO SCH ×2 (08:41→16:23)
[2017-07-23] MEDS: FLUCONAZOLE 200 MG TABLET PO SCH (08:41)
[2017-07-23] MEDS: CYANOCOBALAMIN 500 MCG TABLET PO SCH (08:41)
[2017-07-23] MEDS: FERROUS SULFATE 325 MG TABLET PO SCH ×2 (08:41→20:44)
[2017-07-23] MEDS: APIXABAN 2.5 MG TABLET PO SCH ×2 (08:41→20:44)
[2017-07-23] MEDS: DOCUSATE SODIUM 100 MG CAPSULE PO SCH ×2 (08:41→20:46)
[2017-07-23] MEDS: PANTOPRAZOLE 40 MG TABLET PO SCH ×2 (08:42→20:44)
[2017-07-23] MEDS: MUPIROCIN 2% OINT 22 GM TUBE TOP SCH ×2 (08:42→20:46)
[2017-07-23] MEDS: BUDESONIDE/FORMOTEROL 80-4.5 INHALER 6.9 GM INH SCH ×2 (08:43→20:46)
[2017-07-23] MEDS: COLESTIPOL 1 GM TABLET PO SCH (08:46)
[2017-07-23] MEDS ORDERED: MYLANTA/LIDO VISC 2:1 300 ML BOTTLE SWISH/SPIT ONE (10:46)
[2017-07-23] MEDS: MYLANTA/LIDO VISC 2:1 300 ML BOTTLE SWISH/SPIT PRN ×2 (12:01→20:47)
[2017-07-23] MEDS: ALBUMIN 25% 25 GM in PREMIX 1 EACH IV SCH ×2 (15:45→23:30)
[2017-07-23] MEDS: LEVOFLOXACIN INJ 250 MG in PREMIX 1 EACH IV SCH (16:23)
[2017-07-24] MEDS: ALBUTEROL/IPRATROPIUM 3 ML NEB RESP TX SCH ×4 (00:29→20:33)
[2017-07-24] MEDS: methylPREDNISolone SOD SUC 40 MG/1 ML VIAL IV SCH ×3 (00:31→17:23)
[2017-07-24 06:46] LABS: Basophils % 0.1 % (0.0-0.8); Hematocrit 27.4 VOL% (42.0-52.0); Hemoglobin 8.5 GM/DL (14.0-18.0); Immature Granulocytes % 4.7 %; Immature Granulocytes Absolute 0.51 #; Lymphocytes # 0.7 10*3/uL (1.4-4.0); Mean Corpuscular Hemoglobin 31 PG (27-34); Mean Corpuscular Volume 100.4 FL (87-102); Mean Platelet Volume 12.5 FL (9.6-12.0); Monocytes % 9.2 % (1.7-12.7); NRBC # 0.36 10*3/uL; Neutrophils # 8.6 10*3/uL (1.4-7.4); Red Blood Count 2.73 MC/CUMM (3.8-5.5); Red Cell Distribution Width 25.5 % (9.3-17.3)
[2017-07-24 06:56] LABS: White Blood Count 10.8 T/CUMM (4-12)
[2017-07-24 06:57] LABS: Platelet Count 44 T/CUMM (130-400)
[2017-07-24 07:12] LABS: Calcium 7.9 MG/DL (8.5-10.1); Magnesium 2.8 MG/DL (1.8-2.4); Osmolality,Calculated 323.7 MOS/KG (273-304); Potassium 5.2 MMOL/L (3.5-5.1)
[2017-07-24 07:19] LABS: Anisocytosis 1+; Hypochromasia 1+; Lymphocytes 5 % (20-55); Macrocytosis 1+; Nucleated Red Blood Cells 5 (0-5); Platelet Estimate Decreased; Polychromasia Slight; Segmented Neutrophils 92 % (50-85); Total Cells Counted 100
[2017-07-24] MEDS: DOCUSATE SODIUM 100 MG CAPSULE PO SCH ×2 (10:49→20:35)
[2017-07-24] MEDS: CYANOCOBALAMIN 500 MCG TABLET PO SCH (10:49)
[2017-07-24] MEDS: CARVEDILOL 12.5 MG TABLET PO SCH ×2 (10:49→17:23)
[2017-07-24] MEDS: PANTOPRAZOLE 40 MG TABLET PO SCH ×2 (10:50→20:35)
[2017-07-24] MEDS: APIXABAN 2.5 MG TABLET PO SCH ×2 (10:50→20:35)
[2017-07-24] MEDS: INSULIN LISPRO 100 UNIT/ML SUBCUT SCH ×4 (10:50→20:57)
[2017-07-24] MEDS: FERROUS SULFATE 325 MG TABLET PO SCH ×2 (10:50→20:35)
[2017-07-24] MEDS: ALBUMIN 25% 25 GM in PREMIX 1 EACH IV SCH ×3 (10:51→23:08)
[2017-07-24] MEDS: VANCOMYCIN 50 MG/ML 60 ML/BOTTLE PO SCH ×3 (10:56→23:09)
[2017-07-24] MEDS: MAGNESIUM OXIDE 400 MG TABLET PO SCH (10:56)
[2017-07-24] MEDS: FLUCONAZOLE 200 MG TABLET PO SCH (10:56)
[2017-07-24] MEDS: SODIUM BICARB INJ 50 MEQ in DEXTROSE 5% 950 ML IV SCH ×2 (10:57→20:37)
[2017-07-24] MEDS: MUPIROCIN 2% OINT 22 GM TUBE TOP SCH ×2 (10:58→20:36)
[2017-07-24] MEDS: BUDESONIDE/FORMOTEROL 80-4.5 INHALER 6.9 GM INH SCH ×2 (10:59→20:56)
[2017-07-24] MEDS: COLESTIPOL 1 GM TABLET PO SCH (11:30)
[2017-07-24] MEDS: LEVOFLOXACIN INJ 250 MG in PREMIX 1 EACH IV SCH (17:16)
[2017-07-24] MEDS: MYLANTA/LIDO VISC 2:1 300 ML BOTTLE SWISH/SPIT PRN (20:36)
[2017-07-25] MEDS: methylPREDNISolone SOD SUC 40 MG/1 ML VIAL IV SCH ×3 (00:13→17:37)
[2017-07-25] MEDS: ALBUTEROL/IPRATROPIUM 3 ML NEB RESP TX SCH ×4 (01:22→19:46)
[2017-07-25 04:53] LABS: Basophils % 0.1 % (0.0-0.8); Hematocrit 24.9 VOL% (42.0-52.0); Hemoglobin 7.6 GM/DL (14.0-18.0); Immature Granulocytes % 6.9 %; Immature Granulocytes Absolute 0.74 #; Lymphocytes # 0.9 10*3/uL (1.4-4.0); Lymphocytes % 8.7 % (21.2-54.2); Mean Corpuscular HGB Conc 30.5 GM/DL (32-36); Mean Corpuscular Hemoglobin 31 PG (27-34); Mean Platelet Volume 12.8 FL (9.6-12.0); Monocytes # 0.7 10*3/uL (0.11-0.8); Monocytes % 6.6 % (1.7-12.7); Neutrophils # 8.4 10*3/uL (1.4-7.4); Neutrophils % 77.7 % (38.7-73.9); Red Blood Count 2.44 MC/CUMM (3.8-5.5); Red Cell Distribution Width 25.7 % (9.3-17.3); White Blood Count 10.8 T/CUMM (4-12)
[2017-07-25 05:07] LABS: Platelet Count 35 T/CUMM (130-400)
[2017-07-25 05:19] LABS: Calcium 8.6 MG/DL (8.5-10.1); Magnesium 2.3 MG/DL (1.8-2.4); Osmolality,Calculated 318.7 MOS/KG (273-304); Potassium 5.4 MMOL/L (3.5-5.1)
[2017-07-25 05:37] LABS: Band Neutrophils 3 % (0-10); Lymphocytes 12 % (20-55); Macrocytosis 3+; Nucleated Red Blood Cells 3 (0-5); Platelet Estimate Decreased; Segmented Neutrophils 81 % (50-85); Total Cells Counted 100
[2017-07-25] MEDS: VANCOMYCIN 50 MG/ML 60 ML/BOTTLE PO SCH ×2 (05:56→16:19)
[2017-07-25] MEDS: MYLANTA/LIDO VISC 2:1 300 ML BOTTLE SWISH/SPIT PRN (06:05)
[2017-07-25] MEDS: ALBUMIN 25% 25 GM in PREMIX 1 EACH IV SCH (06:06)
[2017-07-25] MEDS: INSULIN LISPRO 100 UNIT/ML SUBCUT SCH ×4 (08:36→21:45)
[2017-07-25] MEDS: FERROUS SULFATE 325 MG TABLET PO SCH ×2 (09:05→21:44)
[2017-07-25] MEDS: MUPIROCIN 2% OINT 22 GM TUBE TOP SCH ×2 (09:05→21:45)
[2017-07-25] MEDS: DOCUSATE SODIUM 100 MG CAPSULE PO SCH ×2 (09:05→21:42)
[2017-07-25] MEDS: FLUCONAZOLE 200 MG TABLET PO SCH (09:05)
[2017-07-25] MEDS: PANTOPRAZOLE 40 MG TABLET PO SCH ×2 (09:05→21:44)
[2017-07-25] MEDS: CARVEDILOL 12.5 MG TABLET PO SCH ×2 (09:05→17:37)
[2017-07-25] MEDS: COLESTIPOL 1 GM TABLET PO SCH (09:05)
[2017-07-25] MEDS: CYANOCOBALAMIN 500 MCG TABLET PO SCH (09:05)
[2017-07-25] MEDS: APIXABAN 2.5 MG TABLET PO SCH (09:05)
[2017-07-25] MEDS: MAGNESIUM OXIDE 400 MG TABLET PO SCH (09:05)
[2017-07-25] MEDS: BUDESONIDE/FORMOTEROL 80-4.5 INHALER 6.9 GM INH SCH ×2 (09:06→21:45)
[2017-07-25] MEDS: ZINC OXIDE PASTE 113 GM TUBE TOP PRN (10:15)
[2017-07-25] MEDS: SODIUM BICARB INJ 50 MEQ in DEXTROSE 5% 950 ML IV SCH (10:27)
[2017-07-25] MEDS ORDERED: FUROSEMIDE 40 MG/4 ML VIAL IV ONE (11:46)
[2017-07-25] MEDS ORDERED: LINEZOLID INJ 600 MG in PREMIX 1 EACH IV SCH (12:30)
[2017-07-25] MEDS: SULFAMETH/TRIMETH INJ 160 MG in DEXTROSE 5% 250 ML IV SCH (13:00)
[2017-07-25 16:50] LABS: Hematocrit 25.8 VOL% (42.0-52.0); Hemoglobin 7.7 GM/DL (14.0-18.0)
[2017-07-25 18:25] LABS: Basophils % 0.2 % (0.0-0.8); Hematocrit 26.1 VOL% (42.0-52.0); Immature Granulocytes % 8.2 %; Immature Granulocytes Absolute 1.16 #; Lymphocytes # 1.4 10*3/uL (1.4-4.0); Lymphocytes % 9.9 % (21.2-54.2); Mean Corpuscular HGB Conc 30.7 GM/DL (32-36); Mean Corpuscular Hemoglobin 32 PG (27-34); Mean Corpuscular Volume 102.8 FL (87-102); Mean Platelet Volume 12.9 FL (9.6-12.0); Monocytes # 0.8 10*3/uL (0.11-0.8); Monocytes % 5.4 % (1.7-12.7); NRBC # 0.97 10*3/uL; Neutrophils # 10.8 10*3/uL (1.4-7.4); Neutrophils % 76.3 % (38.7-73.9); Red Blood Count 2.54 MC/CUMM (3.8-5.5); Red Cell Distribution Width 25.6 % (9.3-17.3); White Blood Count 14.2 T/CUMM (4-12)
[2017-07-25 18:30] LABS: Platelet Count 37 T/CUMM (130-400)
[2017-07-25 19:00] LABS: Anisocytosis 1+; Lymphocytes 8 % (20-55); Macrocytosis 1+; Nucleated Red Blood Cells 7 (0-5); Platelet Estimate Decreased; Segmented Neutrophils 89 % (50-85); Total Cells Counted 100
[2017-07-25 19:01] LABS: Ovalocytes Slight; Poikilocytosis Slight; Polychromasia Slight
[2017-07-26] MEDS: ALBUTEROL/IPRATROPIUM 3 ML NEB RESP TX SCH ×4 (00:47→20:00)
[2017-07-26] MEDS: SULFAMETH/TRIMETH INJ 160 MG in DEXTROSE 5% 250 ML IV SCH ×2 (01:16→12:56)
[2017-07-26] MEDS: methylPREDNISolone SOD SUC 40 MG/1 ML VIAL IV SCH ×3 (01:16→17:46)
[2017-07-26] MEDS: SODIUM BICARB INJ 50 MEQ in DEXTROSE 5% 950 ML IV SCH (03:29)
[2017-07-26 05:33] LABS: Basophils % 0.3 % (0.0-0.8); Hematocrit 26.2 VOL% (42.0-52.0); Immature Granulocytes % 8.3 %; Immature Granulocytes Absolute 1.21 #; Lymphocytes # 1.4 10*3/uL (1.4-4.0); Lymphocytes % 9.9 % (21.2-54.2); Mean Corpuscular HGB Conc 30.5 GM/DL (32-36); Mean Corpuscular Hemoglobin 32 PG (27-34); Mean Corpuscular Volume 103.1 FL (87-102); Mean Platelet Volume 13.3 FL (9.6-12.0); Monocytes # 0.7 10*3/uL (0.11-0.8); NRBC # 1.16 10*3/uL; Neutrophils # 11.1 10*3/uL (1.4-7.4); Neutrophils % 76.5 % (38.7-73.9); Red Blood Count 2.54 MC/CUMM (3.8-5.5); Red Cell Distribution Width 26.1 % (9.3-17.3); White Blood Count 14.5 T/CUMM (4-12)
[2017-07-26 05:36] LABS: Platelet Count 39 T/CUMM (130-400)
[2017-07-26 06:00] LABS: Calcium 8.6 MG/DL (8.5-10.1); Magnesium 2.6 MG/DL (1.8-2.4); Osmolality,Calculated 318.6 MOS/KG (273-304); Potassium 5.5 MMOL/L (3.5-5.1)
[2017-07-26 06:23] LABS: Band Neutrophils 5 % (0-10); Giant Platelets Few; Hypochromasia 1+; Lymphocytes 4 % (20-55); Nucleated Red Blood Cells 7 (0-5); Ovalocytes Slight; Platelet Estimate Decreased; Segmented Neutrophils 88 % (50-85); Total Cells Counted 100
[2017-07-26 06:24] LABS: Macrocytosis Slight; Polychromasia Slight
[2017-07-26] MEDS: ZINC OXIDE PASTE 113 GM TUBE TOP PRN ×2 (08:00→15:45)
[2017-07-26] MEDS: INSULIN LISPRO 100 UNIT/ML SUBCUT SCH ×4 (08:51→21:48)
[2017-07-26] MEDS: MUPIROCIN 2% OINT 22 GM TUBE TOP SCH ×2 (08:56→21:58)
[2017-07-26] MEDS: BUDESONIDE/FORMOTEROL 80-4.5 INHALER 6.9 GM INH SCH ×2 (08:57→21:49)
[2017-07-26] MEDS: MAGNESIUM OXIDE 400 MG TABLET PO SCH (09:03)
[2017-07-26] MEDS: CARVEDILOL 12.5 MG TABLET PO SCH ×2 (09:03→17:46)
[2017-07-26] MEDS: FLUCONAZOLE 200 MG TABLET PO SCH (09:03)
[2017-07-26] MEDS: PANTOPRAZOLE 40 MG TABLET PO SCH ×2 (09:03→21:45)
[2017-07-26] MEDS: FERROUS SULFATE 325 MG TABLET PO SCH ×2 (09:03→21:45)
[2017-07-26] MEDS: CYANOCOBALAMIN 500 MCG TABLET PO SCH (09:03)
[2017-07-26] MEDS: DOCUSATE SODIUM 100 MG CAPSULE PO SCH ×2 (09:04→21:48)
[2017-07-26] MEDS: COLESTIPOL 1 GM TABLET PO SCH (09:05)
[2017-07-27] MEDS: ALBUTEROL/IPRATROPIUM 3 ML NEB RESP TX SCH ×4 (00:14→20:21)
[2017-07-27] MEDS: SULFAMETH/TRIMETH INJ 160 MG in DEXTROSE 5% 250 ML IV SCH ×2 (00:21→16:57)
[2017-07-27 03:40] LABS: ABG Base Excess -2.1 MMOL/L (-2.5-2.5); ABG HCO3 24.6 MMOL/L (20-26); ABG Oxygen Saturation 92.1 % (95-100); ABG PCO2 51.6 MM HG (35-48); ABG PH 7.296 (7.35-7.45); ABG PO2 77.8 MM HG (80-95); ABG TCO2 26.2 MMOL/L (23-27); Pt O2 Delivery Device BIPAP
[2017-07-27] MEDS: methylPREDNISolone SOD SUC 40 MG/1 ML VIAL IV SCH ×3 (03:58→16:57)
[2017-07-27 04:46] LABS: Basophils # 0.1 10*3/uL (0.0-0.2); Basophils % 0.4 % (0.0-0.8); Hematocrit 28.6 VOL% (42.0-52.0); Hemoglobin 8.4 GM/DL (14.0-18.0); Immature Granulocytes % 9.6 %; Immature Granulocytes Absolute 1.73 #; Lymphocytes # 1.7 10*3/uL (1.4-4.0); Lymphocytes % 9.2 % (21.2-54.2); Mean Corpuscular HGB Conc 29.4 GM/DL (32-36); Mean Corpuscular Hemoglobin 32 PG (27-34); Mean Corpuscular Volume 107.1 FL (87-102); Mean Platelet Volume 12.4 FL (9.6-12.0); Monocytes # 0.7 10*3/uL (0.11-0.8); Monocytes % 3.9 % (1.7-12.7); NRBC # 2.33 10*3/uL; Neutrophils # 13.8 10*3/uL (1.4-7.4); Neutrophils % 76.9 % (38.7-73.9); Red Blood Count 2.67 MC/CUMM (3.8-5.5); Red Cell Distribution Width 25.9 % (9.3-17.3)
[2017-07-27 05:23] LABS: Calcium 8.3 MG/DL (8.5-10.1); Magnesium 2.8 MG/DL (1.8-2.4); Osmolality,Calculated 325.6 MOS/KG (273-304)
[2017-07-27 05:47] LABS: Platelet Count 35 T/CUMM (130-400)
[2017-07-27 06:10] LABS: Potassium 6.2 MMOL/L (3.5-5.1)
[2017-07-27] MEDS ORDERED: SODIUM POLYSTYRENE SULFATE 15 GM/60 ML BOTTLE PO ONE (06:25)
[2017-07-27 06:42] LABS: Band Neutrophils 3 % (0-10); Lymphocytes 4 % (20-55); Metamyelocytes 1 %; Nucleated Red Blood Cells 12 (0-5); Platelet Estimate Decreased; Segmented Neutrophils 91 % (50-85); Total Cells Counted 100
[2017-07-27] MEDS: INSULIN LISPRO 100 UNIT/ML SUBCUT SCH ×4 (07:38→22:56)
[2017-07-27] MEDS: DOCUSATE SODIUM 100 MG CAPSULE PO SCH ×2 (08:10→22:35)
[2017-07-27] MEDS: FUROSEMIDE 40 MG/4 ML VIAL IV SCH ×3 (08:10→15:31)
[2017-07-27] MEDS: CARVEDILOL 12.5 MG TABLET PO SCH ×2 (08:14→17:16)
[2017-07-27] MEDS: PANTOPRAZOLE 40 MG TABLET PO SCH ×2 (08:14→22:35)
[2017-07-27] MEDS: COLESTIPOL 1 GM TABLET PO SCH (08:14)
[2017-07-27] MEDS: MAGNESIUM OXIDE 400 MG TABLET PO SCH (08:14)
[2017-07-27] MEDS: CYANOCOBALAMIN 500 MCG TABLET PO SCH (08:14)
[2017-07-27] MEDS: FERROUS SULFATE 325 MG TABLET PO SCH ×2 (08:14→22:34)
[2017-07-27] MEDS: FLUCONAZOLE 200 MG TABLET PO SCH (08:14)
[2017-07-27] MEDS: MUPIROCIN 2% OINT 22 GM TUBE TOP SCH ×2 (08:15→22:34)
[2017-07-27] MEDS: BUDESONIDE/FORMOTEROL 80-4.5 INHALER 6.9 GM INH SCH ×2 (08:16→22:33)
[2017-07-27] MEDS: metroNIDAZOLE INJ 500 MG in PREMIX 1 EACH IV SCH ×2 (08:18→23:28)
[2017-07-27] MEDS ORDERED: SODIUM BICARBONATE 50 MEQ/50 ML SYRINGE IV ONE (08:29)
[2017-07-27] MEDS: MYLANTA/LIDO VISC 2:1 300 ML BOTTLE SWISH/SPIT PRN ×2 (08:43→19:37)
[2017-07-27] MEDS ORDERED: ROCURONIUM 100 MG/10 ML VIAL IV ONE (10:43)
[2017-07-27] MEDS ORDERED: PROPOFOL 200 MG/20 ML VIAL IV ONE (10:43)
[2017-07-27 11:13] LABS: ABG Base Excess -5.2 MMOL/L (-2.5-2.5); ABG HCO3 19.8 MMOL/L (20-26); ABG Oxygen Saturation 77.8 % (95-100); ABG PCO2 56.4 MM HG (35-48); ABG PH 7.218 (7.35-7.45); ABG PO2 55.6 MM HG (80-95); ABG TCO2 21.7 MMOL/L (23-27)
[2017-07-27] MEDS: PHENYLEPHRINE DRIP 40 MG/250 ML PREMIX IV SCH ×6 (11:28→21:36)
[2017-07-27] MEDS: PROPOFOL 1,000 MG/100 ML BOTTLE IV SCH (11:49)
[2017-07-27 12:30] LABS: ABG Base Excess -7.1 MMOL/L (-2.5-2.5); ABG HCO3 18.6 MMOL/L (20-26); ABG PCO2 42.5 MM HG (35-48); ABG PH 7.269 (7.35-7.45); ABG TCO2 18.3 MMOL/L (23-27); Pt O2 Delivery Device Ventilator
[2017-07-27] MEDS: DEXTROSE 50% 25 GM/50 ML VIAL IV PRN ×2 (16:45→22:57)
[2017-07-27] MEDS: ZINC OXIDE PASTE 113 GM TUBE TOP PRN (16:57)
[2017-07-27 17:06] LABS: Apearance,Urine CLOUDY (Clear); Bilirubin,Urine Negative (Negative); Blood, Urine Moderate mg/dL (Negative); Glucose,Urine (UA) 50 mg/dL (Negative); Ketones,Urine Negative (Negative); Nitrite,Urine Negative (Negative); Protein,Urine 100 MG/DL; RBC,Urine 15549 /HPF (0-4); Urine Color Amber (Yellow); Urine Specific Gravity 1.013 (1.001-1.035); Urine Urobilinogen < 2.0 EU/DL (0.2-1.0); WBC,Urine 332 /HPF (0-6)
[2017-07-27] MEDS ORDERED: NOREPINEPHRINE 4 MG/4 ML VIAL IV ONE (20:17)
[2017-07-27] MEDS: NOREPINEPHRINE 8 MG in SODIUM CHLORIDE 0.9% 242 ML IV SCH (20:25)
[2017-07-27] MEDS ORDERED: fentaNYL 100 MCG/2 ML VIAL IV ONE (21:48)
[2017-07-27] MEDS ORDERED: LEVOFLOXACIN INJ 500 MG in PREMIX 1 EACH IV ONE (22:00)
[2017-07-27] MEDS ORDERED: PHENYLEPHRINE INJ 160 MG in SODIUM CHLORIDE 0.9% 234 ML IV SCH (22:30)
[2017-07-27] MEDS ORDERED: VANCOMYCIN INJ 1,500 MG in SODIUM CHLORIDE 0.9% 500 ML IV SCH (22:30)
[2017-07-27] MEDS: fentaNYL INJ 1,250 MCG in SODIUM CHLORIDE 0.9% 225 ML IV SCH (23:30)
[2017-07-27] MEDS ORDERED: fentaNYL INJ 1,250 MCG in SODIUM CHLORIDE 0.9% 225 ML IV SCH (23:30)
[2017-07-28] MEDS: ALBUTEROL/IPRATROPIUM 3 ML NEB RESP TX SCH (00:52)
[2017-07-28] MEDS: methylPREDNISolone SOD SUC 40 MG/1 ML VIAL IV SCH (01:01)
[2017-07-28] MEDS ORDERED: SODIUM CHLORIDE 0.9% 1,000 ML IV PRN ×2 (01:19→01:58)
[2017-07-28] MEDS: DEXTROSE 50% 25 GM/50 ML VIAL IV PRN (01:30)
[2017-07-28] MEDS ORDERED: VASOPRESSIN 100 UNITS in SODIUM CHLORIDE 0.9% 95 ML IV SCH (01:30)
[2017-07-28] MEDS: PROPOFOL 1,000 MG/100 ML BOTTLE IV SCH (01:32)
[2017-07-28] MEDS: fentaNYL INJ 1,250 MCG in SODIUM CHLORIDE 0.9% 225 ML IV SCH (01:37)
[2017-07-28] MEDS: NOREPINEPHRINE 8 MG in SODIUM CHLORIDE 0.9% 242 ML IV SCH (01:43)
[2017-07-28] MEDS ORDERED: DEXTROSE 5% 1,000 ML IV SCH (02:00)
[2017-07-28 02:20] LABS: Basophils # 0.2 10*3/uL (0.0-0.2); Basophils % 0.5 % (0.0-0.8); Eosinophils % 0.1 % (0.00-10.9); Immature Granulocytes % 16.6 %; Lymphocytes # 3.5 10*3/uL (1.4-4.0); Lymphocytes % 9.5 % (21.2-54.2); Mean Corpuscular HGB Conc 26.8 GM/DL (32-36); Mean Corpuscular Hemoglobin 33 PG (27-34); Mean Corpuscular Volume 121.6 FL (87-102); Mean Platelet Volume 12.2 FL (9.6-12.0); Monocytes # 2.4 10*3/uL (0.11-0.8); Monocytes % 6.4 % (1.7-12.7); NRBC # 5.11 10*3/uL; Neutrophils % 66.9 % (38.7-73.9); Platelet Count 111 T/CUMM (130-400); Red Blood Count 2.45 MC/CUMM (3.8-5.5); Red Cell Distribution Width 26.1 % (9.3-17.3); White Blood Count 37.3 T/CUMM (4-12)
[2017-07-28 02:41] LABS: ABG Base Excess -22.7 MMOL/L (-2.5-2.5); ABG HCO3 7.9 MMOL/L (20-26); ABG Oxygen Saturation 99.3 % (95-100); ABG PCO2 34.6 MM HG (35-48); ABG TCO2 7.9 MMOL/L (23-27); Allen Test Positive; Pt O2 Delivery Device Ventilator
[2017-07-28 02:43] LABS: ABG PH 6.962 (7.35-7.45)
[2017-07-28 02:44] LABS: Calcium 7.8 MG/DL (8.5-10.1); Osmolality,Calculated 325.1 MOS/KG (273-304)
[2017-07-28] MEDS ORDERED: SODIUM BICARBONATE 50 MEQ/50 ML SYRINGE IV ONE ×2 (02:44)
[2017-07-28 02:46] LABS: Hematocrit 30.3 VOL% (42.0-52.0)
[2017-07-28 02:49] LABS: Potassium 6.8 MMOL/L (3.5-5.1)
[2017-07-28 02:52] LABS: Anisocytosis 1+; Atypical Lymphocytes 1+; Band Neutrophils 6 % (0-10); Lymphocytes 40 % (20-55); Macrocytosis 3+; Nucleated Red Blood Cells 14 (0-5); Platelet Estimate Decreased; Segmented Neutrophils 44 % (50-85); Total Cells Counted 100
[2017-07-28] MEDS ORDERED: SODIUM POLYSTYRENE SULFATE 15 GM/60 ML BOTTLE PO ONE (02:52)
[2017-07-28] MEDS ORDERED: SODIUM POLYSTYRENE SULFATE 15 GM/60 ML BOTTLE ONE (02:59)
[2017-07-28 04:02] LABS: ABG HCO3 8.9 MMOL/L (20-26); ABG Oxygen Saturation 98.7 % (95-100); ABG PCO2 41.4 MM HG (35-48); ABG TCO2 9.7 MMOL/L (23-27); Allen Test Positive; Pt O2 Delivery Device Ventilator
[2017-07-28 04:03] LABS: ABG PH 6.975 (7.35-7.45)
[2017-07-28] MEDS ORDERED: MORPHINE 2 MG/1 ML SYRINGE IV PRN (04:11)
[2017-07-28] MEDS ORDERED: LORazepam 2 MG/1 ML VIAL IV PRN (04:11)
[2017-07-28 07:14] VITALS: BP 74/51
[2017-07-28] MEDS ORDERED: LEVOFLOXACIN INJ 250 MG in PREMIX 1 EACH IV SCH (22:00)
== END 2017-07-28 04:42 | disposition expired | DRG 871 ==
LOC: EDBD → EDUNIT# → N.ED 09:26 → N.EDINP 14:05 → SUATTDRO 14:05 → N.ICU 17:09 → N.4E 07-16 16:01 → N.CC 07-21 10:53
PROVIDERS: ADMIT Internal Medicine; ATTEND Internal Medicine Geriatric Medicine